=== PATIENT | male | born 1980 | race African-American/Black ===

== ENCOUNTER 2017-12-27 21:16 | Emergency (ER) | payer MEDICAID, SELFPAY ==
[2017-12-27 21:18] VITALS: BP 197/119; PULSE 136; RESP 20; TEMP 37.2; O2SAT 98; BMI 94.3
--- NOTE | 2017-12-27 21:43 | US_ITS ---
STUDY: VENOUS DOPPLER ULTRASOUND - BILATERAL LOWER EXTREMITIES REASON FOR EXAM: Male, 37 years old. Bilateral leg swelling after walking. TECHNIQUE: Ultrasound evaluation of the deep vein system to include kuhn-scale imaging and compression was performed. Kuhn-scale imaging and Doppler sonographic evaluation, including duplex spectral analysis and qualitative color flow sonography, was performed. COMPARISON: None. FINDINGS: RIGHT LEG Common Femoral Vein: Normal compression, spontaneity and augmentation. Normal color Doppler. Common Femoral Vein/Greater Saphenous Junction: Normal color flow. Deep Femoral Vein: Normal color flow. Femoral Proximal: Normal color flow. Femoral Middle: Normal compression, spontaneity and augmentation. Normal color Doppler. Femoral Distal: Normal color flow. Popliteal Vein: Normal compression, spontaneity and augmentation. Normal color Doppler. Posterior Tibial Vein: Normal color flow. Peroneal Vein: Normal color flow. LEFT LEG Common Femoral Vein: Normal compression, spontaneity and augmentation. Normal color Doppler. Common Femoral Vein/Greater Saphenous Junction: Normal color flow. Deep Femoral Vein: Normal color flow. Femoral Proximal: Normal color flow. Femoral Middle: Normal compression, spontaneity and augmentation. Normal color Doppler. Femoral Distal: Normal color flow. Popliteal Vein: Normal compression, spontaneity and augmentation. Normal color Doppler. Posterior Tibial Vein: Normal color flow. Peroneal Vein: Normal color flow. US/Venous Duplex Imag/Jerald Extrem IMPRESSION: Bilateral lower extremity venous Doppler exam negative for DVT Electronically Signed: Holly Hines MD at 22:52 EDT , Service support ,
[2017-12-27 21:57] VITALS: RESP 18; O2SAT 96
[2017-12-27 22:14] LABS: Anion Gap 5 (5-15); BUN 8 mg/dL (7-18); BUN/Creat Ratio 7.8 RATIO (10-20); Calcium,Total 8.3 mg/dL (8.5-10.1); Chloride 102 mmol/L (98-107); Creatinine, Serum 1.02 mg/dL (0.70-1.30); EST Glomerular Filtration Rate 88 mL/min (>60); Est Glom Filt Rate - Afr Amer 107 mL/min (>60); Estimated Creatinine Clearance 107.66 ml/min; Glucose 95 mg/dL (74-106); Potassium 2.9 mmol/L (3.5-5.1); Sodium Level 138 mmol/L (136-145)
[2017-12-27 22:22] LABS: CPK Total, Creatine Kinase 447 U/L (39-308)
[2017-12-27] MEDS: Cephalexin 250 MG Capsule 500 MG PO (23:34)
[2017-12-27] MEDS: oxyCODONE 5 MG Tablet 10 MG PO (23:34)
[2017-12-27 23:36] VITALS: BP 154/106; PULSE 118; RESP 18; O2SAT 96
--- NOTE | 2017-12-27 23:44 | ED.DCSUM_ITS ---
- ER Visit Summary Date of Service: 12/27/17 Chief Complaint: Bilateral lower extremity edema History of Present Illness: The patient is a 37 M presenting with bilateral lower extremity edema. Patient states this has been ongoing for the past 3 days. He states that he has been in several arguments with his girlfriend. He states that to get away from her he has been walking several miles each day for the last 3 days. He denies suicidal or homicidal ideation. He denies chest pain or shortness of breath. He has pain and swelling in both lower extremities. Denies other complaints. Physical Examination: Blood pressure 197/119, heart rate 136, pulse ox 96% on room air. patient is afebrile. Alert no acute distress. HEENT exam is unremarkable. Neck is supple. Lungs are clear and equal bilaterally. Heart is regular rate and rhythm. Abdomen is soft nontender nondistended. Extremities bilateral symmetric edema, normal distal pulses. Mild anterior erythema to both calves. Skin is warm and dry. No focal neurologic deficit. Remainder of exam is unremarkable. Emergency Department Course and Treatment: Bilateral lower extremity Doppler shows no evidence of DVT. Chemistries show potassium 2.9. He is given potassium oral replacement. His CK is 447. He is given 1 dose of OxyIR in the emergency department. He was given Keflex. On reevaluation, he now states that he has not been taking his blood pressure medication or Lasix for the past 3 days. He states he has his medications available to him at home and will take them as directed. Repeat blood pressure 154/106, heart rate 106. He is advised to follow up with his primary care physician. Advised return to ED for worsening complaints. Disposition: Discharge home Impression: Bilateral lower extremity edema, mild cellulitis This note was generated with [employer] dictation software. It may contain incorrect words, spelling, and punctuation that were not noted in review of the chart prior to signing ED Disposition - Plan for ED Patient: Disposition: Home or Assisted Living Chief Complaint: Edema Instructions: ED Leg Swelling Bilateral Prescriptions: Cephalexin [Keflex] 500 mg PO Q6 #40 capsule Referrals: Care Physician,No Primary [Primary Care Provider] -
[2017-12-28 00:15] VITALS: PULSE 110
== END 2017-12-28 00:16 | disposition home or self-care (01) ==
PROVIDERS: Emergency Provider Emergency Medicine
DX: R60.0 Localized edema (principal); L03.90 Cellulitis, unspecified; I10 Essential (primary) hypertension
CPT/HCPCS: 80048; 82550; 93970; 99284; A4216

== ENCOUNTER 2018-07-20 18:16 | Emergency (ER) | payer MEDICAID, SELFPAY ==
[2018-07-20 18:16] VITALS: BP 197/127; PULSE 106; RESP 18; TEMP 36.3; O2SAT 95; BMI 42.0
--- NOTE | 2018-07-20 19:06 | ED.DCSUM_ITS ---
- ER Visit Summary Date of Service: 07/20/18 Chief Complaint: Sore throat and right ear pain History of Present Illness: The patient is a 38 M who presents for 1 day of sore throat and right ear pain. Patient woke up with symptoms. He has had associated fever, mild cough, sinus congestion. He has pain with swallowing. No difficulty breathing or chest pain. He still has his tonsils. He has hypertension and obstructive sleep apnea. he lives at the [facility]. Physical Examination: Vital signs: afebrile, hypertensive and tachycardic, no hypoxia on room air General: well nourished, well developed, in no distress Skin: warm, dry, no rash, no pallor HEENT: normocephalic and atraumatic; PERRL, EOMI, moist mucous membranes on the posterior oropharynx is erythematous with diffuse tonsillar and uvular edema and exudate on the uvula. No other lesions noted. Neck is tender in the anterior cervical chains, greater on the right. Right TM is dull, erythematous, bulging. Cardiovascular: Tachycardic rate and rhythm without murmurs, no peripheral edema, 2+ pulses all distal extremities Respiratory: No increased work of breathing, lungs are clear to auscultation bilaterally, no rales, rhonchi or wheezing Abdominal: Abdomen is soft, nontender with normoactive bowel sounds, no guarding or rebound, no masses MSK: Moves all extremities, no deformities, normal strength Neuro: Awake and alert, oriented ?4. No facial droop, sensation and motor function intact and symmetric Test Results: [] Emergency Department Course and Treatment: Patient presents with a physical exam consistent with right acute otitis media and pharyngitis with mild exudate noted. Patient has poor follow-up and is homeless, thus because this may be a bacterial otitis media and pharyngitis, he was started on antibiotics. Patient was given a dose of Decadron to help with his sore throat. He was given naproxen for discomfort. He is allergic to Tylenol, this was not an option. Treatment Plan: [] Disposition: [] Impression: pharyngitis, right otitis media This note was generated with [employer] software. It may contain incorrect words, spelling, and punctuation that were not noted in review of the chart prior to signing ED Disposition - Plan for ED Patient: Disposition: Home or Assisted Living Chief Complaint: Sore Throat Instructions: ED Otitis Media Acute Adult, ED Strep Pharyngitis Poss Prescriptions: Amox/Clavulanate Tablet [Augmentin Tablet] 875 mg PO Q12H #20 tab RX: Naproxen [Naprosyn] 500 mg PO BID #14 tab Referrals: Tiffany Nance MD [STAFF PHYSICIAN] - 3-5 Days if not improving Care Physician,No Primary [Primary Care Provider] - Additional Instructions: Take the antibiotic twice daily for the full 10 days, even if you feel better before it is complete. You may use naproxen for fever and pain. If you have any worsening of your condition or any new concerning symptoms, please return immediately to the emergency department for another evaluation.
--- NOTE | 2018-07-20 19:06 | ED.DEP ---
ED Disposition - Plan for ED Patient: Disposition: Home or Assisted Living Chief Complaint: Sore Throat Instructions: ED Strep Pharyngitis Poss, ED Otitis Media Acute Adult Prescriptions: Amox/Clavulanate Tablet [Augmentin Tablet] 875 mg PO Q12H #20 tab Naproxen [Naprosyn] 500 mg PO BID #14 tab Referrals: Care Physician,No Primary [Primary Care Provider] - Tiffany Nance MD [STAFF PHYSICIAN] - 3-5 Days if not improving Additional Instructions: Take the antibiotic twice daily for the full 10 days, even if you feel better before it is complete. You may use naproxen for fever and pain. If you have any worsening of your condition or any new concerning symptoms, please return immediately to the emergency department for another evaluation.
[2018-07-20 19:49] VITALS: BP 178/102; PULSE 90; RESP 14; O2SAT 96
[2018-07-20] MEDS: Amox/Clavulanate 875 MG Tablet PO (19:49)
[2018-07-20] MEDS: Naproxen 500 MG Tablet PO (19:49)
== END 2018-07-20 19:50 | disposition home or self-care (01) ==
PROVIDERS: Emergency Provider Emergency Medicine
DX: J02.9 Acute pharyngitis, unspecified (principal); H66.91 Otitis media, unspecified, right ear; I10 Essential (primary) hypertension; G47.33 Obstructive sleep apnea (adult) (pediatric); E66.9 Obesity, unspecified; R05 Cough; M54.2 Cervicalgia
CPT/HCPCS: 99283

== ENCOUNTER 2019-01-03 14:02 | Emergency (ER) | payer SELFPAY ==
[2019-01-03 14:03] VITALS: BP 180/110; PULSE 93; RESP 20; TEMP 36.6; BMI 42.2
--- NOTE | 2019-01-03 14:28 | ED.VISSUMM ---
- ER Visit Summary Date of Service: 01/03/19 Chief Complaint: Bilateral foot pain History of Present Illness: The patient is a 38 M presents to the emergency department bilateral foot pain. The patient states he has been going on for about a week. He states his been on his feet more often with work. He states he was on for couple days and the pain got better. He states over the past 3 days, the pain is worsened. He states was worse when he wakes up. He states when he steps, he gets stabbing pain in both feet. Denies any fevers. He denies any trauma. Is not taken anything for it. Physical Examination: Exam is relatively unremarkable. Patient does have tenderness to palpation bilateral plantar fascia. Pulses are normal. Skin is intact. Test Results: [] Emergency Department Course and Treatment: Symptoms do seem consistent with plantar fasciitis. He has normal pulses. Compartments are soft. He said no trauma. We will treat him with anti-inflammatories. He is given 1 dose of analgesics here. He will be discharged home. Treatment Plan: [] Disposition: Discharge Impression: Plantar fasciitis This note was generated with [employer] dictation software. It may contain incorrect words, spelling, and punctuation that were not noted in review of the chart prior to signing ED Disposition - Plan for ED Patient: Instructions: ED Plantar Fasciitis Prescriptions: Prednisone [Deltasone] 40 mg PO DAILY #10 tab Naproxen [Naprosyn] 500 mg PO BID #14 tab Referrals: Care Physician,No Primary [Primary Care Provider] -
[2019-01-03] MEDS: predniSONE 20 MG Tablet 40 MG PO (14:37)
--- NOTE | 2019-01-03 15:07 | ED.RN ---
PT UNABLE TO STAY AWAKE WHILE THIS RN AND REGISTRATION IN ROOM. HAD TO BE AWAKENED X3 WITHIN 4 MIN TIME FRAME. MD NOTIFIED, ORDER FOR OXYIR CANCELED. PT ANGRY AT DISCHARGE, STATES HE DESERVES STRONG PAIN MEDICATION, STATES HE IS UNABLE TO WORK DUE TO PAIN. REQUESTS TO SPEAK TO MD. MD ASKS THIS RN TO RELAY MESSAGE THAT NSAIDS AND STEROIDS ARE APPROPRIATE TREATMENT FOR PLANTAR FASCITIS, NO NARCOTICS WILL BE PRESCRIBED. 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 ATTEMPTED TO EDUCATE ON PLANTAR FASCITIS, PT LEFT DEPT WHILE RN SPEAKING.
== END 2019-01-03 15:12 | disposition home or self-care (01) ==
PROVIDERS: Emergency Provider Emergency Medicine
DX: M72.2 Plantar fascial fibromatosis (principal); I10 Essential (primary) hypertension; Z72.0 Tobacco use
CPT/HCPCS: 99283

== ENCOUNTER 2019-01-07 02:30 | Emergency (ER) | payer SELFPAY ==
[2019-01-07 02:30] VITALS: BP 218/134; PULSE 96; RESP 18; TEMP 36.7; O2SAT 99; BMI 41.4
[2019-01-07] MEDS: Ketorolac 60 MG/2 ML Vial IM (02:47)
--- NOTE | 2019-01-07 02:48 | ED.DCSUM_ITS ---
History of Present Illness Chief Complaint: Lower Extremity Injury Informant: Patient Narrative: Patient stated he started a new job and has been on his feet a lot and work boots for the last 2 weeks. He is having worsening pain in the bottom of his bilateral feet. He describes sharp pains with walking after he is been standing all day. 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 He was seen a few days ago diagnosed with bilateral plantar fasciitis. Given anti-inflammatories which she stated does help minimally. Comes in for further evaluation she had a leave work tonight because of the pain. No injury. Past Medical History - Allergies and Home Meds Allergies/Adverse Reactions: Allergies hydrocodone [From Vicodin] Adverse Reaction (Verified 01/07/19 02:32) Itching POLLEN Allergy (Uncoded 01/07/19 02:32) Shortness of breath Primary Care Physician: Care Physician,No Primary [Primary Care Provider] - Prior records reviewed: Yes Past Medical History: - - Hypertension Surgical History: - - Reviewed Smoking Status: Former smoker Alcohol: None Drugs: None Review of Systems General: Denies: Chills, Fever, Sweats Eyes: Denies: Visual changes - bilaterally, Diplopia ENT: Denies: Rhinorrhea, Sore throat Cardiovascular: Denies: Chest pain, Palpitations Respiratory: Denies: Dyspnea, Cough, Dyspnea on exertion Gastrointestinal: Denies: Abdominal pain, Nausea, Vomiting, Diarrhea, Melena, Hematochezia Genitourinary: Denies: Dysuria, Hematuria, Frequency Musculoskeletal: Reports: - - Bilateral foot pain. Denies: Back pain, Extremity Pain Skin: Denies: Rash, Wounds Neurological: Denies: Headache, Weakness, Numbness Physical Exam Vital Signs/Narrative: Vital Signs Temp Pulse Resp BP Pulse Ox 01/07/19 02:30 98.1 F 96 18 218/134 H 99 General: Well nourished, Well developed, No Acute Distress Head: Normocephalic, Atraumatic Eyes: Perrl, EOMI ENT: Moist mucous membranes, No rhinorrhea Neck: Supple, Nontender Cardiovascular: Regular rate, Regular rhythm, No murmurs Respiratory: No distress, CTA bilaterally, Chest nontender Abdomen: Soft, Nontender, Nondistended, Normal bowel sounds Back: Nontender, Normal Inspection Extremities: No edema, - - Tenderness in the plantar fascia on bilateral lower extremities. Normal pulses. Normal temperature. Normal movement.. Negative for: Nontender Skin: Normal color, No rash Neurological: Alert, Oriented x3, Cranial nerves II-XII grossly intact, Normal Strength, Normal Sensation Psychological: Normal affect, Normal Mood Diagnostic/Tx/Re-eval - Medical Decision Making Patient diagnosed with plantar fasciitis a few days ago. I feel this is just a persistent finding. I do not feel he needs imaging. There is no evidence of trauma or infection. He is been wearing his heavy duty work boots. I think this is contributing to his pain in his feet. Instructed to try to get an insole. Given referral to podiatry. Given a shot of Toradol. Will rest and ice as best he can. ED Disposition - Plan for ED Patient: Disposition: Custodial Facility Diagnosis: Plantar fasciitis, bilateral Instructions: ED Plantar Fasciitis Referrals: Nayan Romero DPM [STAFF PHYSICIAN] -
[2019-01-07 03:01] VITALS: RESP 14
== END 2019-01-07 03:02 | disposition skilled nursing facility (03) ==
PROVIDERS: Emergency Provider Emergency Medicine
DX: M72.2 Plantar fascial fibromatosis (principal); I10 Essential (primary) hypertension; Z87.891 Personal history of nicotine dependence; J30.1 Allergic rhinitis due to pollen
CPT/HCPCS: 99282

== ENCOUNTER 2020-02-05 17:07 | Emergency (ER) | payer MEDICAID, SELFPAY ==
[2020-02-05 17:08] VITALS: BP 152/107; PULSE 94; RESP 15; TEMP 36.6; O2SAT 97; BMI 40.9
--- NOTE | 2020-02-05 17:41 | ED.VIS.DENTA ---
History of Present Illness Chief Complaint: Dental Informant: Patient Onset: Yesterday Context: Gradual Onset Timing: Continuous Quality: sore Location: left side of mouth/teeth/gums Current Severity: Moderate Maximum Severity: Moderate Worsened by: eating Relieved by: - - having cold water against it. Naproxen did not help at all. Associated Symptoms: - - No fever, jaw or facial swelling, discharge, neck pain. Narrative: Gradual onset oral pain of unknown etiology. - Past Medical History (1) HTN (hypertension) Status: Chronic Past Medical History - Allergies and Home Meds Allergies/Adverse Reactions: Allergies hydrocodone [From Vicodin] Adverse Reaction (Verified 02/05/20 17:08) Itching POLLEN Allergy (Uncoded 02/05/20 17:08) Shortness of breath Primary Care Physician: Care Physician,No Primary [Primary Care Provider] - Surgical History: - - Reviewed Smoking Status: Former smoker Review of Systems General: Denies: Chills, Fever, Sweats ENT: Reports: - - gingival/dental pain. Denies: Bilateral ear pain, Rhinorrhea, Sore throat Cardiovascular: Denies: Chest pain, Palpitations Respiratory: Denies: Dyspnea, Cough, Dyspnea on exertion Gastrointestinal: Denies: Abdominal pain, Nausea, Vomiting, Diarrhea, Melena, Hematochezia Physical Exam Vital Signs/Narrative: Vital Signs Temp Pulse Resp BP Pulse Ox 02/05/20 17:08 97.9 F 94 15 152/107 H 97 Inital Vital Signs reviewed: Yes General: Well nourished, Well developed, - - NAD Head: Normocephalic, Atraumatic ENT: Moist mucous membranes, No rhinorrhea Mouth/Throat: Normal oral mucosa, No focal abscess, Gingivitis - mild, inside teeth #14-15 on edge of gingiva next to teeth only, and very mild on outside of mandibular left gingiva near edentulous area, teeth#18-20. no abscess or drainage., - - No gingival bleeding anywhere.. Negative for: Dental trauma, Dental abscess, Dentral fracture, Focal gum swelling, Tenderness on tooth percussion, Trismus Neck: Supple, No lymphadenopathy, Nontender Skin: Normal color, No rash, No Trauma Neurological: Alert, Oriented x3, Cranial nerves II-XII grossly intact, Normal Strength, Normal Sensation, Normal Gait Psychological: Normal affect, Normal Mood Diagnostic/Tx/Re-eval - Medical Decision Making Possibly gingivitis. It is the only abnormality that I can see on inspection. The teeth that are to their look good. We will place him on Ultram and clindamycin, discussed eating yogurt along with it to prevent antibiotic associated diarrhea and C. difficile, and given dental resource list. He was given a dose of Orellana 2 inhibitor here because it is good for oral pain, in addition to tramadol. ED Disposition - Plan for ED Patient: Disposition: Home or Assisted Living Diagnosis: Gingivitis Instructions: Understanding Gingivitis Prescriptions: Clindamycin [Cleocin] 300 mg PO 4X/DAY #80 cap Transmission Status: Pending to Private Practice #30 traMADol [Ultram] 50 mg PO Q4H PRN PRN 2 Days #12 tablet PRN Reason: Pain Transmission Status: Sent to Private Practice #30 Referrals: Dentist,Your [STAFF PHYSICIAN] - 3-5 Days if not improving (or see attached resource list)
[2020-02-05] MEDS: Meloxicam 7.5 MG Tablet PO (18:00)
[2020-02-05] MEDS: traMADol 50 MG Tablet PO (18:00)
[2020-02-05] MEDS: Clindamycin HCl 150 MG Capsule 300 MG PO (18:33)
--- OUTSIDE RECORDS SUMMARY | 2020-06-13 12:06 | XMS RPT_ITS | CCD ---
:1980 External Reference #:[id number] Author Organization [facility] Care Team Providers Name Role Phone Kasi Kong Unavailable Unavailable Wayt, Marcell Unavailable Unavailable Wayt, Marcell Unavailable Unavailable PROVIDER, UNKNOWN Unavailable Unavailable Wayt, Marcell Unavailable Unavailable Wayt, Marcell Unavailable Unavailable Wayt, Marcell Unavailable Unavailable Wayt, Marcell Unavailable Unavailable Viviane, Scottie Unavailable Unavailable Miki Recinos (Prasanna) Primary Care Provider Allergies Reported Allergen Reaction(s) Severity Date of Onset Location Acetaminophen / HYDROcodone Unknown 01-16-2017 - [facility] ([id number]) Pollen Itching 12-30-2018 - [facility] (59123) Medications Medication Name Sig Date Prescriber Location Albuterol albuterol HFA 05-04-2019 Amairani Shirley (Reese-C) [facility] linic (VENTOLIN HFA) [address] Amairani Shirley ([id number]) mcg/actuation inhaler (Pa-C) Sonny Indications: Moderate persistent asthma without complication Inhale 2 Puffs as instructed every 4 hours as needed for Wheezing/Shortness of Breath. 18 g 2 05/04/2019 Active Comment: Inhale 2 Puffs as instructed every 4 hours as needed for Wheezing/Shortness of Breath. amLODIPine amLODIPine (NORVASC) 5 12-30-2018 Miki Ponce (Prasanna) [facility] mg tablet Indications: Jorje Ponce ( 52947) Essential hypertension (Pa-C) Jorje Take 1 tablet by mouth once daily. 30 tablet 2 12/30/2018 Active Comment: Take 1 tablet by mouth once daily. benzonatate benzonatate (TESSALON 06-17-2018 Lisa ([facility]) [facility] PERLE) 100 mg capsule King Lisa ([id number]) Indications: ([facility]) Eboni Sinobronchitis Take 2 capsules by mouth three times daily as needed. 30 capsule 0 06/17/2018 Active Comment: Take 2 capsules by mouth thr ee times daily as needed. Betamethasone / clotrimazole-betamethasone 12-30-2018 Miki Roberto Clotrimazole (LOTRISONE) cream Indications: (Pa-C) Clinic Tinea pedis of left foot Apply Jorje Livingston (12070) 1 application to affected area Kris twice daily. UNTIL CLEAR FOR UP (Pa-C) TO 2-3 WEEKS 15 g 1 12/30/2018 Jorje Active Comment: Apply 1 application to affec lamar area twice daily. UNTIL CLEAR FOR UP TO 2-3 WEEKS Doxycycline doxycycline monohydrate 06-17-2018 Lisa ([facility]) [facility] 100 mg tablet King TraciLisa (08781) Indications: ([facility]) Eboni Sinobronchitis Take 1 tablet by mouth twice daily. 20 tablet 0 06/17/2018 Active Comment: Take 1 tablet by mouth twice daily. formoterol / mometasone-formoterol 12-30-2018 Miki Back and Mometasone (DULERA) 200-5 mcg/actuation (Pa-C) [facility] (24588) inhaler Indications: Miki Ponce Moderate persistent asthma (Pa-C) Jorje without complication Inhale 2 Puffs as instructed twice daily. Rinse mouth and spit after each use. 1 Inhaler 1 12/30/2018 Active Comment: Inhale 2 Puffs as instructed twice daily. Rinse mouth and spit after each use. Ibuprofen ibuprofen (MOTRIN) 800 12-30-2018 Miki Ponce (Reese-C) [facility] mg tablet Take 1 tablet Jorje Ponce (11892) by mouth every 8 hours (Pa-C) Jorje as needed (FOR PAIN. TAKE WITH FOOD). 30 tablet 2 12/30/2018 Active Comment: Take 1 tablet by mouth every 8 hours as needed (FOR PAIN. TAKE WITH FOOD). Lisinopril lisinopril (ZESTRIL, 12-30-2018 Miki Ponce (Pa-C) [facility] PRINIVIL) 20 mg tablet Jorje Ponce ( 30583) Indications: Essential (Pa-C) Recinos hypertension Take 1 tablet by mouth once daily. 30 tablet 2 12/30/2018 Active Comment: Take 1 tablet by mouth once daily. Loratadine loratadine (CLARITIN) 10 06-28-2018 Naty (Oncology Social Work) [facility] mg tablet Indications: Podlogar Naty (44 195) Moderate persistent (Oncology Social Work) Podlogar asthma without complication TAKE 1 TABLET BY MOUTH EVERY DAY 30 tablet 2 06/28/2018 Active Comment: TAKE 1 TABLET BY MOUTH EVERY DAY Problems Active Problems Category Problem Name Status Date Location Alcohol-related Alcohol dependence Active 05-16-2015 - [facility] disorders (94716) Anxiety disorders Generalized anxiety Active 05-16-2015 - [facility] disorder (21896) Asthma Unspecified asthma, Active 05-16-2015 - [facility] uncomplicated (61778) Essential hypertension Essential (primary) Active 05-16-2015 [facility] hypertension (00113) Other connective tissue Pain of toe of left Active 05-16-2015 - [facility] disease foot (24880) Other nutritional; Morbid obesity Active 11-28-2017 - [facility] endocrine; and (19146) metabolic disorders Other upper respiratory Allergic rhinitis Active 05-16-2015 - [facility] disease (82609) Substance-related Nicotine dependence, Active 05-27-2017 [facility] disorders cigarettes, (41576) uncomplicated Unclassified Sleep apnea, Active 05-27-2017 - [facility] stem unspecified (09699) Past or Other Problems Category Problem Name Status Date Location Allergic reactions Allergy status to Completed 05-20-2017 [facility] narcotic agent System (26262 ) status Chronic obstructive Bronchitis, not Completed 05-27-2017 [facility] pulmonary disease and specified as acute System (46291) bronchiectasis or chronic Other lower respiratory Cough Completed 05-20-2017 [facility] disease System (71003) Other screening for Liver function tests Completed 05-16-2015 - [facility] suspected conditions abnormal (15521) (not mental disorders or infectious disease) Other upper respiratory Nasal congestion Completed 05-20-2017 [facility] Health disease System (20863) Other upper respiratory Acute pharyngitis, Completed 05-20-2017 [facility] Health infections unspecified System (66948) Otitis media and related Acute serous otitis Completed 7 - [facility] conditions media, bilateral System (000 00) Superficial injury; Contusion of left Completed 03-11-2017 [facility] contusion front wall of System (61701) thorax, initial encounter Viral infection Other viral agents Completed 03-11-2017 - [facility] as the cause of System (0000 0) diseases classified elsewhere Results Result Name Value Range Unit Interpretation Flag Date Location obsolete on 2020-02 OBSOLETE Refill ([facility]) Normal 03-06-2020 [facility] KELECHI VALENCIA ([id number]) 1980 [facility] Date Time Provider Department (69720) 03/06/20 KARI LANDAVERDE (REESE) [facility] During your visit today, we recorded the following informati on about you: Kiki Russell LPN 04/21/2020 3:54 PM Signed Patient's request for medication is as follows: Refused Prescriptions Disp Refills loratadine (CLARITIN) 10 mg tablet [Pharmacy Med Name: lorat adine 10 mg tablet] 7 tablet 0 Sig: Take 1 tablet by mouth once daily for 7 days. SHAYY: No Refused By: KIKI RUSSELL LPN Reason for Refusal: Patient needs appointment Prescription(s) as above. Please process accordingly. Kiki Russell LPN Allergies As of Date: 03/06/2020 Noted Allergy Reaction HYDROCODONE-ACETAMINOPHEN 01/16/2017 16 - Unknown POLLEN EXTRACTS 12/30/2018 9 - Itching Date Reviewed: 05/04/2019 Reviewed by: Dax (Rn) SHABBIR Persaud - Fully Assessed Reason for Visit: Refill Request [94] Visit Diagnosis:Moderate persistent asthma without complicat ion [J45.40] Prescriptions as of 03/06/2020 Sig: ALBUTEROL SULFATE HFA 90 MCG/* Inhale 2 Puffs as instructed * IBUPROFEN 800 MG TABLET Take 1 tablet by mouth every * MOMETASONE-FORMOTEROL HFA 200* Inhale 2 Puffs as instructed * LISINOPRIL 20 MG TABLET Take 1 tablet by mouth once d* AMLODIPINE 5 MG TABLET Take 1 tablet by mouth once d* CLOTRIMAZOLE-BETAMETHASONE 1 * Apply 1 application to affect * LORATADINE 10 MG TABLET TAKE 1 TABLET BY MOUTH EVERY * DOXYCYCLINE MONOHYDRATE 100 M* Take 1 tablet by mouth twice * Patient not taking: Reported on 12/29/2018 BENZONATATE 100 MG CAPSULE Take 2 capsules by mouth thre* Patient not taking: Reported on 12/29/2018 Problem List As Of Date 03/06/2020 Noted Resolved Allergic rhinitis due to allergen [J30.9] 05/16/2015 Elevated LFTs [R79.89] 05/16/2015 Essential hypertension [I10] 05/16/2015 Other and unspecified alcohol dependence, unspe*05/16/2015 More... Anxiety, generalized [F41.1] 05/16/2015 Pain in toe of left foot [M79.675] 05/16/2015 More... Asthma [J45.909] 05/16/2015 Obesity, Class III, BMI 40-49.9 (morbid obesity*11/28/2017 Elevated glucose [R73.09] 12/24/2017 Encounter Status:Closed by KIKI RUSSELL LPN on 04/21/20 xr chest 2v frontal/lat on 2019-05-04 XR CHEST 2V * * *Final Report* * * Normal 05-04 [facility] FRONTAL/LAT DATE OF EXAM: May 04 2019 [facility] CHEST 2V FRONTAL/LAT / (56045) PROCEDURE REASON: Cough, new onset * * * * Physician Interpretation * * * * EXAMINATION: CHEST RADIOGRAPH (2 VIEW FRONTAL & LATERAL) CLINICAL HISTORY: Cough, new onset MQ: XC2_5 Comparison: None RESULT: Lines, tubes, and devices: None. Lungs and pleura: No consolidation. No lung mass. No pleural effusion. Cardiomediastinal silhouette: Normal cardiomediastinal silho uette. Other: No bony abnormalities. IMPRESSION: No acute radiographic abnormality. General Farm Hand: RONDA Transcribe Date/Time: May 04 2019 3:32P Dictated by : DARRICK VIVEROS MD This examination was interpreted and the report reviewed and electronically signed by: DARRICK VIVEROS MD on May 04 2019 3:33PM EST ed triage note on ED Triage Note HNO ID: [id number] Normal 2018 [facility] Author: REESE Greenwood (Pa) [facility] Service: Emergency Medicine ([id number]) Author Type: Physician Stull Installer Type: ED Triage Notes Filed: 05/04/2019 2:43 PM Note Text: ED INTAKE NOTE Patient Name: Kelechi Valencia Service Date: 05/04/19 BRIEF HPI: Patient presents to the emergency department with a chief co mplaint of congestion and cough. He states symptoms started a few days ago. He denies fevers/chills. He has a history of asthma and endorse s wheezing and chest tightness. He states cough is productive with gree n sputum. He is not a smoker. BRIEF EXAM: Awake and Alert Mildly tachycardic B/l wheezing KEARNS BP 155/112 INTAKE WORKUP: Imaging: XR: chest SIGNATURE: Kimi Morse PA-C ed prov note on 05-05-08 ED PROV NOTE HNO ID: [id number] Normal 05-04-20 [facility] Author: Amairani Loyd) REESE [facility] Service: Emergency Medicine ([id number]) Author Type: Physician Stull Installer Type: ED Provider Notes Filed: 05/04/2019 3:49 PM Note Text: ED Provider Note Patient Name: Kelechi Valencia SERVICE DATE: 05/04/19 History Patient presents with: Nasal Congestion: Pt ambulatory to triage, c/o congestion AN D productive cough w/ green sputum x a few days. Pt denies fever. Cough 38-year-old male with past medical history significant for u ncontrolled hypertension, medication noncompliance, asthma [facility] with complaints of cough and congestion as well as wheezing and c hest tightness for the last 3-4 days. He has a history of asthma, reports t hat he ran out of his albuterol inhaler yesterday. He has not taken any of her jwrb-lmc-hwfytrw medications for cough or congestion. He rep orts dyspnea on exertion. He is a nonsmoker. He reports that he is out of his blood pressure medications for more than 2 months and has an appoi ntment with a new PCP 3 days from now. Recently finished penicillin for a dental infection. PAST MEDICAL HISTORY Diagnosis Date - Allergic rhinitis due to allergen 05/16/2015 - Anxiety, generalized 05/16/2015 - Asthma 05/16/2015 - Elevated LFTs 05/16/2015 - Essential hypertension, benign - Other and unspecified alcohol dependence, unspecified drin eboni behavior 05/16/2015 working on cutting back No past surgical history on file. No family history on file. Social History Tobacco Use - Smoking status: Former Smoker Packs/day: 0.50 Types: Cigarettes Start date: 04/26/1997 Last attempt to quit: 11/27/2018 Years since quittin.4 - Smokeless tobacco: Never Used Substance and Sexual Activity - Alcohol use: Yes Comment: 5 beers per week - Drug use: Yes Comment: occasional - Sexual activity: Not on file ALLERGIES Allergen Reactions - Hydrocodone-Acetami* Unknown - Pollen Extracts Itching Review of Systems All other systems reviewed and are negative. Physical Exam BP 160/90 Pulse 98 Temp (Src) 98.1 (Oral) Resp 20 Ht 5' 11 (1.80m) Wt 295 lb (133.8kg) SpO2 98% BMI 41.16 kg/(m2) . O2 Therapy: Room Air Physical Exam Constitutional: He is oriented to person, place, and time. H e appears well-developed and well-nourished. HENT: Head: Normocephalic and atraumatic. Right Ear: Tympanic membrane, external ear and ear canal nor mal. Left Ear: Tympanic membrane, external ear and ear canal norm al. Nose: Nose normal. Mouth/Throat: Uvula is midline, oropharynx is clear and mois t and mucous membranes are normal. No tonsillar exudate. Sounds very congested, clear nasal discharge. No tenderness with palpation of the frontal or maxillary sinuses. Eyes: Conjunctivae are normal. Neck: Normal range of motion. Neck supple. Cardiovascular: Normal rate, regular rhythm and normal heart sounds. Pulmonary/Chest: Effort normal. No stridor. No respiratory d istress. Expiratory wheezing in the bases, diminished throughout. Musculoskeletal: Normal range of motion. Neurological: He is alert and oriented to person, place, and time. Skin: Skin is warm and dry. Psychiatric: He has a normal mood and affect. His behavior i s normal. Judgment and thought content normal. Diagnostic Testing ED Labs Ordered and Reviewed - No data to display Procedures ED Course / Clinical Impression Clinical Impressions as of May 04 1548 Exacerbation of asthma, unspecified asthma severity, unspeci fied whether persistent Nasal congestion Uncontrolled hypertension Noncompliance with medications MDM / Disposition / Plan 38-year-old male presents to the ED with cough, congestion, shortness of breath and wheezing ongoing for the last 3-4 days. Patient i s an asthmatic, is very poorly controlled sounds like is he's run out of his inhaler, does not follow closely with her PCP as noted by hi s elevated blood pressure on arrival, somewhat better after recheck 160 /90. Patient had chest x-ray which revealed no acute abnormalities. He di d have a DuoNeb with some improvement in his wheezing and oxygen satu ration remains good at 90% on room air. Patient given prednisone. Will be d ischarged home with prescription for prednisone for an asthma exacerba tion, instructed to get Sudafed uvzt-dvg-oswrobm for nasal congest ion, refill the patient's albuterol inhaler. He has a follow-up with a n radha PCP he reports on Sunday, highly encouraged him to go to this. C an return with new, worsening or concerning symptoms. Patient verbaliz ed understanding of the plan and all questions were answered pr ior to discharge. SIGNATURE: PRASANNA Tyson Pa-C, PA 05/04/19 1549 ed note on ED NOTE HNO ID: [id number] Normal 05-04-2019 [facility] Author: Carmencita [facility] ([id number]) Service: Emergency Medicine Author Type: Registered Nurse Type: ED Notes Filed: 05/04/2019 3:46 PM Note Text: Waiting for reg in order to print discharge instructions. ED NOTE HNO ID: [id number] Normal 05-04-2019 [facility] Author: [facility] ([id number]) Service: Emergency Medicine Author Type: Registered Nurse Type: ED Notes Filed: 05/04/2019 3:45 PM Note Text: Patient returned to the Emergency Department. ED NOTE HNO ID: [id number] Normal 05-04-2019 [facility] Author: Carmencita (Rn) SHABBIR [facility] ([id number]) Service: Emergency Medicine Author Type: Registered Nurse Type: ED Notes Filed: 05/04/2019 3:26 PM Note Text: Patient transported to [facility] with Tech. ED NOTE HNO ID: [id number] Normal 05-04-2019 [facility] Author: Dax RamRnShari Persaud RN [facility] ([id number]) Service: Emergency Medicine Author Type: Registered Nurse Type: ED Notes Filed: 05/04/2019 2:44 PM Note Text: XR notified pt is ready for exam cr chest pa/lat on 2017-05-20 CR Chest PA/LAT Patient Name: KELECHI VALENCIA 05-20-2017 [facility] FIN: ( [id number]) [id number] Diagnostic Radiology Exam Date/Time 05/20/2017 14:49:10 EDT Exam CR Chest PA/LAT Ordering Physician PRASANNA LEONG ROBERT Accession Number [id number] CPT4 Codes 15572 () Reason For Exam cough Report PA and lateral views of the chest, May 20, 2017. Reason for examination: Cough. COMPARISON: March 11, 2017. FINDINGS: Cardiac size and configuration are normal. Pulmonary vasculature is normal. Lungs are clear. No pleural effusion or pneumothorax is identified. Osseous structures appear grossly intact. IMPRESSION: No acute cardiopulmonary disease. Report Dictated on Final Dictated: 05/20/2017 2:51 pm Dictating Physician: MD HEATON JOE M Signed Date and Time: 05/20/2017 2:53 pm Signed by: MD HEATON JOE M Transcribed Date and Time: 05/20/2017 2:51 cr chest pa/lat on 2017-03-11 CR Chest PA/LAT Patient Name: KELECHI VALENCIA 03-11-2017 [facility] FIN: ( [id number]) [id number] Diagnostic Radiology Exam Date/Time 03/11/2017 15:25:13 EDT Exam CR Chest PA/LAT Ordering Physician MD KONG SHELDON H Accession Number [id number] CPT4 Codes 09741 () Reason For Exam cough and rib pain Report CHEST X-RAY PA/LATERAL CLINICAL INDICATION: Cough and rib pain Frontal and lateral plain films of the chest were obtained. COMPARISON: 01/22/2017 FINDINGS: The cardiac silhouette is within normal limits. No focal consolidation is seen within the lungs. No pleural effusion or pneumothorax is identified. The bony structures of the chest are unremarkable as visualized. IMPRESSION: No acute cardiopulmonary disease. Report Dictated on Final Dictated: 03/11/2017 3:29 pm Dictating Physician: LISA WOODRUFF Signed Date and Time: 03/11/2017 3:29 pm Signed by: LISA WOODRUFF Transcribed Date and Time: 03/11/2017 3:29 Encounters Date Type Reason Provider Location 05-27-2017 Ambulatory Essential (primary) [facility] alth hypertension [facility] (48722) Scottie Pan 05-20-2017 Ambulatory Cough UNKNOWN PROVIDER [facility] (38623) [facility] 03-11-2017 Ambulatory Other viral agents as Kasi Bibi [facility] the cause of diseases [facility] (61386) classified elsewhere Marcell [employer] 03-06-2020 - Refill Uncomplicated moderate Kari R (Pa) [facility] 03-06-2020 persistent asthma Care Comment: Refill Request Plan of Treatment Plan Description Date Location LIPID SCREEN LIPID SCREEN 12-21-2022 [facility] (13041) INFLUENZA (#1) INFLUENZA (#1) 2020 [facility] (06784) ANNUAL PCP TEAM CHRONIC ANNUAL PCP TEAM CHRONIC 12-31-2019 [facility] DISEASE VISIT DISEASE VISIT (93679) ONE PNEUMOVAX PRIOR TO ONE PNEUMOVAX PRIOR TO AGE 1107-03-2001 [facility] AGE 67 65 (57281) DTAP,TDAP,TD (1 - Tdap) DTAP,TDAP,TD (1 - Tdap) 2001 [facility] (39901) BP CONTROLLED (<130/80) BP CONTROLLED (<130/80) 2000 [facility] (00702) HEPATITIS C SCREENING HEPATITIS C SCREENING 2000 [facility] (05977) HIV SCREENING HIV SCREENING 2000 [facility] (63928) SPIROMETRY SPIROMETRY 2000 [facility] (69864) Payers Payer Name Policy Number Location [facility] ([id number]) [place] [id number] [facility] (44 195) The following information is from the original human readable contentNo Payer Records FoundNo Payer Records FoundNo Payer Records FoundNo Payer Records FoundNo Payer Records Found Social History Type Social History Date Location Description Tobacco smoking status Former smoker 05-04-2019 [facility] (79888) History of tobacco use Current smoker 04-26-1997 - [facility] 11-27-2018 (97919) History of tobacco use Cigarette Smoker 04-26-1997 - [facility] 11-27-2018 (13236) Cigarettes smoked 05-04-2019 [facility] ic current (pack per day) (69655) - Reported Tobacco use and Never used 05-04-2019 [facility] exposure (03509) Alcohol intake Current drinker of 05-04-2019 [facility] mami alcohol (finding) (30690) Alcohol Comment 5 beers per week 04-26-2015 [facility] c (23547) Sex Assigned At Not on file [facility] (58871) The following information is from the original human readable contentNo Social History Records FoundNo Social History Records FoundNo Social History Records FoundNo Social History Records FoundNo Social History Records FoundNo Social History Records FoundNo Social History Records Found Summary Purpose Family History No Family History Records FoundNo Family History Records FoundNo Family History Records FoundNo Family History Records Found Advance Directives No Advanced Directives Records Found Documents on File Type Date Recorded Patient [place] Explanati on Advance Directive(s) 05/04/2019 3:43 PM Assessments Diagnosis Moderate persistent asthma without compl ication Unspecified asthma Additional Source Comments FOR RECORDS PERTAINING TO PATIENTS WHO ARE OR HAVE BEEN ENROLLED IN A CHEMICAL DEPENDENCY/SUBSTANCE ABUSE PROGRAM, SOME INFORMATION MAY BE OMITTED. This clinical summary was aggregated from multiple sources. Caution should be exercised in using it in the provision of clinical care. This summary normalizes information from multiple sources, and as a consequence, information in this document may materially changethe coding, format and clinical context of patient data. In addition, data may be omittedin some cases. CLINICAL DECISIONS SHOULD BE BASED ON THE PRIMARY CLINICAL RECORDS. [facility] provides no warranty or guarantee of the accuracy or completeness of information in this document. UNRECOGNIZED CONTENT PROVIDED BELOW FOR UNRECOGNIZED SECTION No Status Records FoundNo Status Records FoundNo Status Records FoundNo Status Records Found UNRECOGNIZED CONTENT PROVIDED BELOW FOR UNRECOGNIZED SECTION INFORMATION SOURCE DATE CREATED AUTHOR AUTHOR'S ORGANIZATIO N 02/20/2018 [facility] DATE CREATED AUTHOR AUTHOR'S ORGANIZATIO N 05/04/2019 [facility] DATE CREATED AUTHOR AUTHOR'S ORGANIZATIO N 05/04/2019 [facility] DATE CREATED AUTHOR AUTHOR'S ORGANIZATIO N 04/22/2020 [facility] UNRECOGNIZED CONTENT PROVIDED BELOW FOR UNRECOGNIZED SECTION Source Comments In the event this information is protected by the Federal Confidentiality of Alcohol and Drug Abuse Patient Records regulations: The Federal rules restrict any use of the information to criminally investigate or prosecute any alcohol or drug abuse patient.[facility] UNRECOGNIZED CONTENT PROVIDED BELOW FOR UNRECOGNIZED SECTION Reason for Visit Reason Comments Refill Request UNRECOGNIZED CONTENT PROVIDED BELOW FOR UNRECOGNIZED SECTION Miscellaneous Notes Telephone Encounter - Kiki Russell LPN - 04/21/2020 3:54 PM EDT Patient's request for medication is as follows: Refused Prescriptions Disp Refills loratadine (CLARITIN) 10 mg tablet [Pharmacy Med Name: loratadine 10 mg tablet] 7 tablet 0 Sig: Take 1 tablet by mouth once daily for 7 days. SHAYY: No Refused By: KIKI RUSSELL LPN Reason for Refusal: Patient needs appointment Prescription(s) as above. Please process accordingly. Kiki Russell LPN documented in this encounter
--- OUTSIDE RECORDS SUMMARY | 2020-06-13 12:07 | XMS RPT_ITS | CCD ---
:1980 External Reference #:[id number] Author Organization [facility] Care Team Providers Name Role Phone Kasi Kong Unavailable Unavailable Wayt, Marcell Unavailable Unavailable Wayt, Marcell Unavailable Unavailable PROVIDER, UNKNOWN Unavailable Unavailable Wayt, Marcell Unavailable Unavailable Wayt, Marcell Unavailable Unavailable Wayt, Marcell Unavailable Unavailable Wayt, Marcell Unavailable Unavailable Viviane, Scottie Unavailable Unavailable Miki Recinos (Prasanna) Primary Care Provider Allergies Reported Allergen Reaction(s) Severity Date of Onset Location Acetaminophen / HYDROcodone Unknown 01-16-2017 - [facility] ([id number]) Pollen Itching 12-30-2018 - [facility] (62010) Medications Medication Name Sig Date Prescriber Location Albuterol albuterol HFA 05-04-2019 Amairani Shirley (Reese-C) [facility] linic (VENTOLIN HFA) 90 [address] Amairani Shirley ([id number]) mcg/actuation inhaler (Pa-C) Sonny Indications: Moderate persistent asthma without complication Inhale 2 Puffs as instructed every 4 hours as needed for Wheezing/Shortness of Breath. 18 g 2 05/04/2019 Active Comment: Inhale 2 Puffs as instructed every 4 hours as needed for Wheezing/Shortness of Breath. amLODIPine amLODIPine (NORVASC) 5 12-30-2018 Miki Ponce (Prasanna) [facility] mg tablet Indications: Jorje Ponce ( 39799) Essential hypertension (Pa-C) Jorje Take 1 tablet by mouth once daily. 30 tablet 2 12/30/2018 Active Comment: Take 1 tablet by mouth once daily. benzonatate benzonatate (TESSALON 06-17-2018 Lisa ([facility]) [facility] PERLE) 100 mg capsule King Lisa ([id number]) Indications: ([facility]) Eboni Sinobronchitis Take 2 capsules by mouth three times daily as needed. 30 capsule 0 06/17/2018 Active Comment: Take 2 capsules by mouth thr ee times daily as needed. Betamethasone / clotrimazole-betamethasone 12-30-2018 Miki Roberto Clotrimazole (LOTRISONE) cream Indications: (Pa-C) Clinic Tinea pedis of left foot Apply Jorje Livingston (00365) 1 application to affected area Kris twice daily. UNTIL CLEAR FOR UP (Pa-C) TO 2-3 WEEKS 15 g 1 12/30/2018 Jorje Active Comment: Apply 1 application to affec lamar area twice daily. UNTIL CLEAR FOR UP TO 2-3 WEEKS Doxycycline doxycycline monohydrate 06-17-2018 Lisa ([facility]) [facility] 100 mg tablet King TraciLisa (17365) Indications: ([facility]) Eboni Sinobronchitis Take 1 tablet by mouth twice daily. 20 tablet 0 06/17/2018 Active Comment: Take 1 tablet by mouth twice daily. formoterol / mometasone-formoterol 12-30-2018 Miki Back and Mometasone (DULERA) 200-5 mcg/actuation (Pa-C) [facility] (12580) inhaler Indications: Miki Ponce Moderate persistent asthma (Pa-C) Jorje without complication Inhale 2 Puffs as instructed twice daily. Rinse mouth and spit after each use. 1 Inhaler 1 12/30/2018 Active Comment: Inhale 2 Puffs as instructed twice daily. Rinse mouth and spit after each use. Ibuprofen ibuprofen (MOTRIN) 800 12-30-2018 Miki Ponce (Reese-C) [facility] mg tablet Take 1 tablet Jorje Ponce (99644) by mouth every 8 hours (Pa-C) Jorje as needed (FOR PAIN. TAKE WITH FOOD). 30 tablet 2 12/30/2018 Active Comment: Take 1 tablet by mouth every 8 hours as needed (FOR PAIN. TAKE WITH FOOD). Lisinopril lisinopril (ZESTRIL, 12-30-2018 Miki Ponce (Pa-C) [facility] PRINIVIL) 20 mg tablet Jorje Ponce ( 27653) Indications: Essential (Pa-C) Recinos hypertension Take 1 tablet by mouth once daily. 30 tablet 2 12/30/2018 Active Comment: Take 1 tablet by mouth once daily. Loratadine loratadine (CLARITIN) 10 06-28-2018 Naty ([place]) [facility] mg tablet Indications: Podlogar Naty (44 195) Moderate persistent ([place] [place]) Podlogar asthma without complication TAKE 1 TABLET BY MOUTH EVERY DAY 30 tablet 2 06/28/2018 Active Comment: TAKE 1 TABLET BY MOUTH EVERY DAY Problems Active Problems Category Problem Name Status Date Location Alcohol-related Alcohol dependence Active 05-16-2015 - [facility] disorders (22923) Anxiety disorders Generalized anxiety Active 05-16-2015 - [facility] disorder (08558) Asthma Unspecified asthma, Active 05-16-2015 - [facility] alth System uncomplicated (48605) Essential hypertension Essential (primary) Active 05-16-2015 [facility] hypertension (33984) Other connective tissue Pain of toe of left Active 05-16-2015 - [facility] disease foot (01011) Other nutritional; Morbid obesity Active 11-28-2017 - [facility] endocrine; and (77163) metabolic disorders Other upper respiratory Allergic rhinitis Active 05-16-2015 - [facility] disease (82920) Substance-related Nicotine dependence, Active 05-27-2017 [facility] disorders cigarettes, (48038) uncomplicated Unclassified Sleep apnea, Active 05-27-2017 - [facility] Health Sy stem unspecified (69292) Past or Other Problems Category Problem Name Status Date Location Allergic reactions Allergy status to Completed 05-20-2017 [facility] narcotic agent System (92052 ) status Chronic obstructive Bronchitis, not Completed 05-27-2017 [facility] pulmonary disease and specified as acute System (49425) bronchiectasis or chronic Other lower respiratory Cough Completed 05-20-2017 [facility] disease System (38790) Other screening for Liver function tests Completed 05-16-2015 - [facility] suspected conditions abnormal (48534) (not mental disorders or infectious disease) Other upper respiratory Nasal congestion Completed 05-20-2017 [facility] disease System (84362) Other upper respiratory Acute pharyngitis, Completed 05-20-2017 [facility] Health infections unspecified System (25639) Otitis media and related Acute serous otitis Completed 7 - [facility] conditions media, bilateral System (000 00) Superficial injury; Contusion of left Completed 03-11-2017 [facility] contusion front wall of System (88417) thorax, initial encounter Viral infection Other viral agents Completed 03-11-2017 - [facility] as the cause of System (0000 0) diseases classified elsewhere Results Result Name Value Range Unit Interpretation Flag Date Location obsolete on 2020-02 OBSOLETE Refill (UCWSTR) Normal 03-06-2020 [facility] KELECHI VALENCIA ([id number]) 1980 [facility] Date Time Provider Department ([id number]) 03/06/20 KARI LANDAVERDE (REESE) [facility] During your [...] * *Final Report* * * Normal 05-04 [facility] FRONTAL/LAT DATE OF EXAM: May 04 2019 [facility] - XR CHEST 2V FRONTAL/LAT / (27720) PROCEDURE REASON: Cough, new onset * * [...] bony abnormalities. IMPRESSION: No acute radiographic abnormality. Bundle Wrapper: RONDA Transcribe Date/Time: May 04 2019 3:32P Dictated by : DARRICK VIVEROS MD This examination was interpreted and the report reviewed and electronically signed by: DARRICK VIVEROS MD on May 04 2019 3:33PM EST ed triage note on ED Triage Note HNO ID: [id number] Normal 2018 [facility] Author: REESE Greenwood (Pa) [facility] Service: Emergency Medicine ([id number]) Author Type: Physician Journeyman Electrician Type: ED Triage Notes Filed: 05/04/2019 2:43 [...] on 05-05-08 ED PROV NOTE HNO ID: [id number] Normal 05-04-20 [facility] Author: Amairani Lyod) REESE Dennis [facility] Service: Emergency Medicine ([id number]) Author Type: Physician Journeyman Electrician Type: ED Provider Notes Filed: 05/04/2019 3:49 PM Note Text: ED Provider Note Patient Name: Kelechi Valencia SERVICE DATE: 05/04/19 History Patient presents with: Nasal Congestion: Pt ambulatory to triage, c/o congestion AN D productive cough w/ green sputum x a few days. Pt denies fever. Cough 38-year-old male with past medical history significant for u ncontrolled hypertension, medication noncompliance, asthma presents to [facility] ED with complaints of cough and congestion as well as wheezing and c hest tightness for the last 3-4 days. He has a history of asthma, reports t hat he ran out of his albuterol inhaler yesterday. He has not taken any of her expw-bij-mlihuma medications for cough or congestion. He rep [...] asthma exacerba tion, instructed to get Sudafed [id number] for nasal congest ion, refill the patient's [...] ed note on ED NOTE HNO ID: [id number] Normal 05-04-2019 [facility] Author: Carmencita [facility] ([id number]) Service: Emergency Medicine Author Type: Registered Nurse Type: ED Notes Filed: 05/04/2019 3:46 PM Note Text: Waiting for reg in order to print discharge instructions. ED NOTE HNO ID: [id number] Normal 05-04-2019 [facility] Author: [facility] ([id number]) Service: Emergency Medicine Author Type: Registered Nurse Type: ED Notes Filed: 05/04/2019 3:45 PM Note Text: Patient returned to the Emergency Department. ED NOTE HNO ID: [id number] Normal 05-04-2019 [facility] Author: Carmencita (Rn) [facility] ([id number]) Service: Emergency Medicine Author Type: Registered Nurse Type: ED Notes Filed: 05/04/2019 3:26 PM Note Text: Patient transported to [facility] with Tech. ED NOTE HNO ID: [id number] Normal 05-04-2019 [facility] Author: Dax RamRnShari [facility] ([id number]) Service: Emergency Medicine Author Type: Registered Nurse Type: ED Notes Filed: 05/04/2019 2:44 PM Note Text: XR notified pt is ready for exam cr chest pa/lat on 2017-05-20 CR Chest PA/LAT Patient Name: KELECHI VALENCIA 05-20-2017 [facility] FIN: ( [id number]) [id number] Diagnostic Radiology Exam Date/Time 05/20/2017 14:49:10 EDT Exam CR Chest PA/LAT Ordering Physician PRASANNA LEONG ROBERT Accession Number [id number] CPT4 Codes 04663 () Reason For Exam cough Report PA [...] Chest PA/LAT Patient Name: KELECHI VALENCIA 03-11-2017 [facility] FIN: ( [id number]) [id number] Diagnostic Radiology Exam Date/Time 03/11/2017 15:25:13 EDT Exam CR Chest PA/LAT Ordering Physician MD KONG SHELDON H Accession Number [id number] CPT4 Codes 29369 () Reason For Exam cough and rib [...] Reason Provider Location 05-27-2017 Ambulatory Essential (primary) [employer] [facility] alth hypertension [employer] (14156) Scottie Pan 05-20-2017 Ambulatory Cough UNKNOWN PROVIDER [facility] Heal h [employer] (53563) Connected 03-11-2017 Ambulatory Other viral agents as Kasi Bib[facility] the cause of diseases [employer] (32171) classified elsewhere Marcell [employer] 03-06-2020 - Refill Uncomplicated moderate Kari R (Pa) [facility] 03-06-2020 persistent asthma Care Comment: Refill Request Plan of Treatment Plan Description Date Location LIPID SCREEN LIPID SCREEN 12-21-2022 [facility] ([id number]) INFLUENZA (#1) INFLUENZA (#1) 2020 [facility] (70980) ANNUAL PCP TEAM CHRONIC ANNUAL PCP TEAM CHRONIC 12-31-2019 [facility] DISEASE VISIT DISEASE VISIT (65891) ONE PNEUMOVAX PRIOR TO ONE PNEUMOVAX PRIOR TO AGE 1107-03-2001 [facility] AGE 67 65 (23618) DTAP,TDAP,TD (1 - Tdap) DTAP,TDAP,TD (1 - Tdap) 2001 [facility] (48555) BP CONTROLLED (<130/80) BP CONTROLLED (<130/80) 2000 [facility] (98145) HEPATITIS C SCREENING HEPATITIS C SCREENING 2000 [facility] (76715) HIV SCREENING HIV SCREENING 2000 [facility] (46020) SPIROMETRY SPIROMETRY 2000 [facility] (90344) Payers Payer Name Policy Number Location [facility] ([id number]) [place] [id number] [facility] (44 195) The following information is from the original human readable contentNo Payer Records FoundNo Payer Records FoundNo Payer Records FoundNo Payer Records FoundNo Payer Records Found Social History Type Social History Date Location Description Tobacco smoking status Former smoker 05-04-2019 [facility] (69614) History of tobacco use Current smoker 04-26-1997 - [facility] 11-27-2018 (51421) History of tobacco use Cigarette Smoker 04-26-1997 - [facility] 11-27-2018 (51022) Cigarettes smoked 05-04-2019 [facility] ic current (pack per day) (46329) - Reported Tobacco use and Never used 05-04-2019 [facility] exposure (07281) Alcohol intake Current drinker of 05-04-2019 [facility] mami alcohol (finding) (56262) Alcohol Comment 5 beers per week 04-26-2015 [facility] c (28592) Sex Assigned At Not on file [facility] (57004) The following information is from the original [...] Documents on File Type Date Recorded Patient Public Improvement Inspector Explanati on Advance Directive(s) 05/04/2019 3:43 PM [...] BE BASED ON THE PRIMARY CLINICAL RECORDS. [facility] provides no warranty or guarantee of the accuracy or completeness of information in this document. UNRECOGNIZED CONTENT PROVIDED BELOW FOR UNRECOGNIZED SECTION No Status Records FoundNo Status Records FoundNo Status Records FoundNo Status Records Found UNRECOGNIZED CONTENT PROVIDED BELOW FOR UNRECOGNIZED SECTION INFORMATION SOURCE DATE CREATED AUTHOR AUTHOR'S ORGANIZATIO N 02/20/2018 [facility] DATE CREATED AUTHOR AUTHOR'S ORGANIZATIO N 05/04/2019 [facility] DATE CREATED AUTHOR AUTHOR'S ORGANIZATIO N 05/04/2019 [facility] DATE CREATED AUTHOR AUTHOR'S ORGANIZATIO N 04/22/2020 [facility] UNRECOGNIZED CONTENT PROVIDED BELOW FOR UNRECOGNIZED SECTION Source Comments In the event this information is protected by the Federal Confidentiality of Alcohol and Drug Abuse Patient Records regulations: The Federal rules restrict any use of the information to criminally investigate or prosecute any alcohol or drug abuse patient.[facility] UNRECOGNIZED CONTENT PROVIDED BELOW FOR UNRECOGNIZED [...]
== END 2020-02-05 18:35 | disposition home or self-care (01) ==
LOC: ED 17:56
PROVIDERS: Emergency Provider Emergency Medicine
DX: K05.10 Chronic gingivitis, plaque induced (principal); I10 Essential (primary) hypertension; Z87.891 Personal history of nicotine dependence; Z88.5 Allergy status to narcotic agent
CPT/HCPCS: 96365; 99283

== ENCOUNTER 2020-02-21 23:50 | Emergency (ER) | payer MEDICAID, SELFPAY ==
[2020-02-21 23:50] VITALS: BP 146/74; PULSE 120; RESP 15; TEMP 37.1; O2SAT 95; BMI 34.8
[2020-02-22] VITALS (7 sets, daily range): BP systolic 161–199; BP diastolic 90–157; PULSE 86–89; RESP 15–22; O2SAT 85–98
--- NOTE | 2020-02-22 00:17 | ED.VIS.GEN ---
History of Present Illness Chief Complaint: Mental Health Informant: Patient Onset: Days Context: Gradual Onset Timing: Intermittent Current Severity: Moderate Maximum Severity: Moderate Narrative: The patient is a 39-year-old male with no known history of psychiatric disease that presents to the emergency department with increasing auditory and visual hallucinations. Patient has a longstanding history of methamphetamine abuse. He was recently in [place]. He states he went through a detox program and had been clean. He moved back to [place] and relapsed twice. He states his been using methamphetamines almost constantly for the past 16 days. He states he is now to the point where he is extremely paranoid. He states tonight, he was running on the streets because he thought someone was chasing him. He denies being suicidal or homicidal. He states that the paranoia is affecting his normal living. He denies any fevers, chills, or sweats. Prior similar symptoms: No Recent Illness/Hospitalization: No Past Medical History - Allergies and Home Meds Allergies/Adverse Reactions: Allergies hydrocodone [From Vicodin] Adverse Reaction (Verified 02/22/20 00:00) Itching POLLEN Allergy (Uncoded 02/05/20 17:08) Shortness of breath Primary Care Physician: Care Physician,No Primary [Primary Care Provider] - Prior records reviewed: Yes Past Medical History: None Surgical History: - - Reviewed Smoking Status: Former smoker Drugs: - - Methamphetamines Review of Systems General: Denies: Chills, Fever, Sweats Eyes: Denies: Visual changes - bilaterally, Diplopia ENT: Denies: Rhinorrhea, Sore throat Cardiovascular: Denies: Chest pain, Palpitations Respiratory: Denies: Dyspnea, Cough, Dyspnea on exertion Gastrointestinal: Denies: Abdominal pain, Nausea, Vomiting, Diarrhea, Melena, Hematochezia Genitourinary: Denies: Dysuria, Hematuria, Frequency Musculoskeletal: Denies: Back pain, Extremity Pain Skin: Denies: Rash, Wounds Neurological: Denies: Headache, Weakness, Numbness Psych: Reports: Anxiety Physical Exam Vital Signs/Narrative: Vital Signs Temp Pulse Resp BP Pulse Ox 02/21/20 23:50 98.8 F 120 H 15 146/74 H 95 Inital Vital Signs reviewed: Yes General: Well nourished, Well developed, No Acute Distress Head: Normocephalic, Atraumatic Eyes: Perrl, EOMI ENT: Moist mucous membranes, No rhinorrhea Neck: Supple, Nontender Cardiovascular: Regular rate, Regular rhythm, No murmurs Respiratory: No distress, CTA bilaterally, Chest nontender Abdomen: Soft, Nontender, Nondistended, Normal bowel sounds Back: Nontender, Normal Inspection Extremities: Nontender, No edema Skin: Normal color, No rash Neurological: Alert, Oriented x3, Cranial nerves II-XII grossly intact, Normal Strength, Normal Sensation Psychological: Normal affect, Normal Mood Diagnostic/Tx/Re-eval Abnormal Lab Results 02/22/20 02/22/20 02/22/20 00:32 00:32 00:32 WBC 11.8 H RBC 4.56 L Hgb 13.2 Hct 41.0 MCV 89.9 MCH 28.9 MCHC 32.2 RDW Std Deviation 43.0 RDW Coeff of Jay Jay 13.2 Plt Count 414 MPV 9.0 Immature Gran % (Auto) 0.300 Neut % (Auto) 69.9 Lymph % (Auto) 16.8 L [place]inole % (Auto) 9.6 Eos % (Auto) 3.1 Baso % (Auto) 0.3 Absolute Neuts (auto) 8.3 H Absolute Lymphs (auto) 1.98 Nucleated RBC % 0 Sodium 144 Potassium 2.9 L Chloride 109 H Carbon Dioxide 29.0 Anion Gap 6 BUN 12 Creatinine 1.06 Estim Creat Clear Calc 101.62 Est GFR (MDRD) Af Amer 101 Est GFR (MDRD) Non-Af 83 BUN/Creatinine Ratio 11.3 Glucose 96 Calcium 8.5 Ethyl Alcohol < 3.0 - Medical Decision Making The patient is internally stimulated. He has been having paranoia. My suspicion is that this is likely drug-induced. He has no history of schizophrenia or bipolar disorder. The patient is requesting medication to help him relax. He was given IM Geodon and Ativan. Metabolic screening exam was performed. He is mildly hypokalemic. Otherwise labs are unremarkable. The patient is now sleeping comfortably. Plan will be to reevaluate him in the morning. Again, my suspicion is this is likely secondary to his amphetamine use. I do feel that if he is not feeling paranoid and is feeling improved, he can safely be discharged with outpatient follow-up. He is counseled on abstaining from medications. He will be given referral to 180. Impression 1. Drug-induced paranoia ED Disposition - Plan for ED Patient: Instructions: ED AMPHETAMINE ABUSE Referrals: [facility] [STAFF PHYSICIAN] -
[2020-02-22] MEDS: LORazepam 2 MG/ML Syringe IM (00:24)
[2020-02-22] MEDS: Ziprasidone IM 20 MG/ML VIAL IM (00:24)
[2020-02-22 00:44] LABS: Absolute Lymphocyte Count 1.98 X10^3/uL (0.83-4.51); Absolute Neutrophil Count 8.3 X10^3/uL (2.0-7.7); Basophil# 0.03 X10^3/uL; Basophil% 0.3 % (0-1); Eosinophil# 0.37 X10^3/uL; Eosinophils% 3.1 % (0-5); Hemoglobin 13.2 g/dL (13.0-16.5); Lymphocyte # 1.98 X10^3/ul (4.0); Lymphocyte % 16.8 % (19-41); Mean Corp Hgb Conc 32.2 g/dL (32-36); Mean Corpuscular Hgb 28.9 pg (27.0-32.0); Mean Corpuscular Volume 89.9 fL (80-94); Monocyte# 1.13 X10^3/uL; Monocyte% 9.6 % (0-10); NRBC Flagged by Analyzer 0 % (0-5); Neutrophil # 8.25 X10^3/uL (2.7-7.7); Neutrophil % 69.9 % (47-70); Platelet Count 414 K/mm3 (150-450); RBC Distribution Width CV 13.2 % (11.6-14.6); Red Blood Count 4.56 M/mm3 (4.6-6.2); White Blood Count 11.8 K/mm3 (4.4-11.0)
[2020-02-22 01:00] LABS: Alcohol, Blood (Medical)-Serum < 3.0 mg/dL
[2020-02-22 01:02] LABS: Anion Gap 6 (5-15); BUN 12 mg/dL (7-18); BUN/Creat Ratio 11.3 RATIO (10-20); Calcium,Total 8.5 mg/dL (8.5-10.1); Chloride 109 mmol/L (98-107); Creatinine, Serum 1.06 mg/dL (0.70-1.30); EST Glomerular Filtration Rate 83 mL/min (>60); Est Glom Filt Rate - Afr Amer 101 mL/min (>60); Estimated Creatinine Clearance 101.62 ml/min; Glucose 96 mg/dL (74-106); Potassium 2.9 mmol/L (3.5-5.1); Sodium Level 144 mmol/L (136-145)
--- NOTE | 2020-02-22 07:27 | ED.RN ---
pt remains sleepy but is arousable. pt aware breakfast was ordered
--- NOTE | 2020-02-22 09:28 | ED.RN ---
pt arousable. was able to eat breakfast with a lot of encouragement. pt continually falls asleep
== END 2020-02-22 10:30 | disposition home or self-care (01) ==
LOC: ED 02-22 00:25
PROVIDERS: Emergency Provider Emergency Medicine
DX: F22 Delusional disorders (principal); F15.10 Other stimulant abuse, uncomplicated; Z87.891 Personal history of nicotine dependence; Z88.5 Allergy status to narcotic agent
CPT/HCPCS: 80048; 80320; 85025; 96372; 99282; G0480; J3486

== ENCOUNTER 2020-02-23 03:47 | Emergency (ER) | payer MEDICAID, SELFPAY ==
[2020-02-23 03:48] VITALS: BP 159/90; PULSE 96; RESP 14; TEMP 36.9; O2SAT 99; BMI 38.4
--- NOTE | 2020-02-23 03:58 | ED.DCSUM_ITS ---
- ER Visit Summary Date of Service: 02/23/20 Chief Complaint: Pt is concerned for chemical exposure History of Present Illness: The patient is a 39 M 3 of underlying psychiatric illness and methamphetamine abuse. States tonight he picked up a cooler felt tingling in his hands and thought he was having a reaction to something detox. He washed his hands off and threw some water on himself. He was brought in by paramedics. He states he never saw any swelling or reaction to his hands. He denies any other complaints. Physical Examination: Male no acute distress vital signs stable afebrile. H EENT exam unremarkable. Neck nontender. Lungs clear to auscultation bilaterally. Heart regular rhythm no murmur. Abdomen soft nontender normal bowel sounds no peritoneal signs. Patient moving all 4 extremities. Neurovascular intact. There is no signs of swelling or trauma. No signs of any type of allergic reaction or chemical exposure causing irritation of the skin. Neurologically is awake and alert with no focal motor deficits. Test Results: None Emergency Department Course and Treatment: Clinically the patient is stable right now. There is no signs of any type of reaction to a chemical or otherwise. Treatment Plan: Follow-up as needed. Disposition: Discharge Impression: Valuation for potential chemical exposure History of mental illness History of methamphetamine abuse This note was generated with [employer] dictation software. It may contain incorrect words, spelling, and punctuation that were not noted in review of the chart samuel or to signing ED Disposition - Plan for ED Patient: Referrals: Care Physician,No Primary [Primary Care Provider] -
--- NOTE | 2020-02-23 04:02 | ED.DEP ---
ED Disposition - Plan for ED Patient: Referrals: Annabel Quiroz [NON-STAFF] - 3-5 Days if not improving
== END 2020-02-23 04:18 | disposition home or self-care (01) ==
LOC: ED 04:04
PROVIDERS: Emergency Provider Emergency Medicine
DX: Z77.098 Contact with and (suspected) exposure to other hazardous, chiefly nonmedicinal, chemicals (principal); F15.10 Other stimulant abuse, uncomplicated
CPT/HCPCS: 99284

== ENCOUNTER 2020-08-21 15:19 | Emergency (ER) | payer MEDICAID, SELFPAY ==
[2020-08-21 15:19] VITALS: BP 196/126; PULSE 128; RESP 17; TEMP 36.4; O2SAT 97; BMI 33.3
[2020-08-21 15:55] LABS: Absolute Lymphocyte Count 2.93 X10^3/uL (0.83-4.51); Absolute Neutrophil Count 7.2 X10^3/uL (2.0-7.7); Basophil# 0.06 X10^3/uL; Basophil% 0.5 % (0-1); Eosinophil# 0.25 X10^3/uL; Eosinophils% 2.2 % (0-5); Hematocrit 45.8 % (40-54); Hemoglobin 14.6 g/dL (13.0-16.5); Lymphocyte # 2.93 X10^3/ul (4.0); Lymphocyte % 25.6 % (19-41); Mean Corp Hgb Conc 31.9 g/dL (32-36); Mean Corpuscular Hgb 28.6 pg (27.0-32.0); Mean Corpuscular Volume 89.8 fL (80-94); Mean Platelet Vol. 8.8 fl (6.2-12.0); Monocyte# 0.93 X10^3/uL; Monocyte% 8.1 % (0-10); NRBC Flagged by Analyzer 0 % (0-5); Neutrophil # 7.24 X10^3/uL (2.7-7.7); Neutrophil % 63.3 % (47-70); Platelet Count 404 K/mm3 (150-450); RBC Distribution Width CV 12.4 % (11.6-14.6); RBC Distribution Width SD 40.9 fl (35.1-43.9); White Blood Count 11.4 K/mm3 (4.4-11.0)
--- NOTE | 2020-08-21 16:11 | ED.DCSUM_ITS ---
History of Present Illness Informant: Patient Onset: Weeks - 2 weeks Context: Gradual Onset Conflict: Family Timing: Continuous Current Severity: Severe Maximum Severity: Severe Worsened by: - - methamphetamine use Relieved by: nothing Associated Symptoms: Flight of Ideas, Increased activity, Agitated, Confusion, Paranoia, Visual Hallucinations Specific plan (suicidal thought): none Narrative: 40-year-old male brought in under pink slip by the [employer] police for paranoia and delusions. Police state they have been called by him numerous times over the last 2 weeks. Today he called them stating that he found a young girl's body in the [place]. Police responded and he let them through the [place] until they came across a [place] with partially frozen water. He waited into this to try to get to the other side and then realized that the location where he thought the body was was high up on an area where he would be unable to walk to. He then stated to the police that he actually just felt this person spirit and he did not actually see the body. Police state that he has had numerous similar calls to them over the last 2 weeks and these calls have escalated in severity to today which prompted them to pink slip him. Patient does admit to frequent methamphetamine use. He is not suicidal or homicidal. He denies any auditory hallucinations. He does state he initially thought he saw this girls body but now states that he felt her spirit and did not actually see anything. He denies any alcohol use or any other drug use. He denies any psychiatric history. Prior similar symptoms: Yes Recent Illness/Hospitalization: No <Carrington Tabares - Last Filed: 08/21/20 17:26> <Bhavesh Ahumada - Last Filed: 08/21/20 17:39> Chief Complaint: Mental Health Past Medical History Prior records reviewed: Yes Past Medical History: None Surgical History: no surgical history, - - Reviewed Lives: Alone Smoking Status: Current every day smoker Alcohol: None Drugs: - - Meth <Carrington Tabares - Last Filed: 08/21/20 17:26> <Bhavesh Ahumada - Last Filed: 08/21/20 17:39> - Allergies and Home Meds Allergies/Adverse Reactions: Allergies hydrocodone [From Vicodin] Adverse Reaction (Verified 08/21/20 15:26) Itching POLLEN Allergy (Uncoded 08/21/20 15:26) Shortness of breath Primary Care Physician: [facility] [STAFF PHYSICIAN] - Review of Systems All systems negative except as indicated General: Denies: Chills, Fever, Sweats Eyes: Denies: Visual changes - bilaterally, Diplopia ENT: Denies: Rhinorrhea, Sore throat Cardiovascular: Denies: Chest pain, Palpitations Respiratory: Denies: Dyspnea, Cough, Dyspnea on exertion Gastrointestinal: Denies: Abdominal pain, Nausea, Vomiting, Diarrhea, Melena, Hematochezia Genitourinary: Denies: Dysuria, Hematuria, Frequency Musculoskeletal: Denies: Back pain, Extremity Pain Skin: Denies: Rash, Wounds Neurological: Denies: Headache, Weakness, Numbness Psych: Denies: Depression, Anxiety, Suicidal thoughts, Suicidal ideations <Carrington Tabares - Last Filed: 08/21/20 17:26> Physical Exam Vital Signs/Narrative: Vital Signs Temp Pulse Resp BP Pulse Ox 08/21/20 15:19 97.5 F L 128 H 17 196/126 H 97 Inital Vital Signs reviewed: Yes General: Well nourished, Well developed Head: Normocephalic, Atraumatic Eyes: Perrl, EOMI ENT: Moist mucous membranes, No rhinorrhea Neck: Supple, Nontender Cardiovascular: Regular rate, Regular rhythm, No murmurs Respiratory: No distress, CTA bilaterally, Chest nontender Abdomen: Soft, Nontender, Nondistended, Normal bowel sounds Back: Nontender, Normal Inspection Extremities: Nontender, No Edema Skin: Normal color, No rash Neurological: Alert, Oriented x3, Cranial nerves II-XII grossly intact, Normal Strength, Normal Sensation Psych: Normal Speech Pattern, No suicidal or homicidal ideation, Normal Stable Appropriate Affect, Normal Appearance, Flight of Ideas, Delusions <Carrington Tabares - Last Filed: 08/21/20 17:26> Vital Signs/Narrative: Vital Signs Temp Pulse Resp BP Pulse Ox 08/21/20 15:19 97.5 F L 128 H 17 196/126 H 97 <Bhavesh Ahumada - Last Filed: 08/21/20 17:39> Diagnostic/Tx/Re-eval Laboratory Results 08/21/20 08/21/20 08/21/20 15:45 15:45 15:45 WBC 11.4 H RBC 5.10 Hgb 14.6 Hct 45.8 MCV 89.8 MCH 28.6 MCHC 31.9 L RDW Std Deviation 40.9 RDW Coeff of Jay Jay 12.4 Plt Count 404 MPV 8.8 Immature Gran % (Auto) 0.300 Neut % (Auto) 63.3 Lymph % (Auto) 25.6 Roane % (Auto) 8.1 Eos % (Auto) 2.2 Baso % (Auto) 0.5 Absolute Neuts (auto) 7.2 Absolute Lymphs (auto) 2.93 Nucleated RBC % 0 Sodium 141 Potassium 3.1 L Chloride 107 Carbon Dioxide 31.0 Anion Gap 3 L BUN 13 Creatinine 1.03 Estim Creat Clear Calc 109.89 Est GFR (MDRD) Af Amer 104 Est GFR (MDRD) Non-Af 86 BUN/Creatinine Ratio 12.6 Glucose 99 Calcium 8.6 Urine Opiates Screen Urine Methadone Screen Ur Barbiturates Screen Ur Phencyclidine Scrn Ur Amphetamines Screen U Methamphetamin-MDMA U Benzodiazepines Scrn Urine Cocaine Screen U Cannabinoids Screen Ur Drug Screen Comment Ethyl Alcohol < 3.0 08/21/20 17:05 WBC RBC Hgb Hct MCV MCH MCHC RDW Std Deviation RDW Coeff of Jay Jay Plt Count MPV Immature Gran % (Auto) Neut % (Auto) Lymph % (Auto) Roane % (Auto) Eos % (Auto) Baso % (Auto) Absolute Neuts (auto) Absolute Lymphs (auto) Nucleated RBC % Sodium Potassium Chloride Carbon Dioxide Anion Gap BUN Creatinine Estim Creat Clear Calc Est GFR (MDRD) Af Amer Est GFR (MDRD) Non-Af BUN/Creatinine Ratio Glucose Calcium Urine Opiates Screen NEGATIVE Urine Methadone Screen NEGATIVE Ur Barbiturates Screen NEGATIVE Ur Phencyclidine Scrn NEGATIVE Ur Amphetamines Screen POSITIVE H U Methamphetamin-MDMA POSITIVE H U Benzodiazepines Scrn NEGATIVE Urine Cocaine Screen NEGATIVE U Cannabinoids Screen POSITIVE H Ur Drug Screen Comment Ethyl Alcohol Restraints applied: No Repeat interview and exam performed by/time: [id number] Patient presented pink slip by local police. On extensive interviewing by myself Dr. Menjivar and our social security specialist Molly patient is not paranoid or delusional. He does endorse methamphetamine use. His toxicology was positive for methamphetamines, amphetamines and THC. On multiple repeat exams the patient has a normal speech pattern he has normal logical sequential goal- directed thoughts. His vital signs are stable. His labs are unremarkable. We do not feel he requires psychiatric admission. He will be discharged with referral to 180 <Carrington Tabares - Last Filed: 08/21/20 17:26> Patient was seen with me. I did a [id number] examination with the patient. Patient presents with abnormal behavior that was noticed today. Police brought the patient to the emergency department because they felt he was delusional. Patient admits to using methamphetamines. Police reports that the patient told them that he saw a girl fall into a shallow tus[place]ora. Patient then later told police that it was the spirit of the girl that fell. Vital signs are stable. Patient is afebrile. Patient is in no acute distress. Oral mucosa is pink and moist. Neck is supple. Trachea is midline. There is no JVD or lymphadenopathy. Heart was regular rate and rhythm. Lungs are clear and equal bilaterally. Abdomen is soft. Bowel sounds are normal. There is no tenderness. Cranial nerves II through XII are intact. There are no focal motor or sensory deficits noted. Patient denies any suicidal or homicidal ideations. Patient denies any visual or auditory hallucinations. Social work was in to evaluate the patient. She also does not feel the patient is having paranoid or delusional ideations at this time. She does not feel the patient is suicidal or homicidal. She does not feel the patient warrants inpatient psychiatric treatment at this time. Patient was instructed to stop using methamphetamines. Patient was instructed to follow-up with 180. Patient was instructed to return if worse in any way. Patient understood and was agreeable with the plan. All questions were answered. <Bhavesh Ahumada - Last Filed: 08/21/20 17:39> ED Disposition <Carrington Tabares - Last Filed: 08/21/20 17:26> <Bhavesh Ahumada - Last Filed: 08/21/20 17:39> - Plan for ED Patient: Disposition: Home or Assisted Living Diagnosis: Methamphetamine abuse Instructions: ED Drug Abuse Referrals: [facility] [STAFF PHYSICIAN] -
[2020-08-21 16:12] LABS: Anion Gap 3 (5-15); BUN 13 mg/dL (7-18); BUN/Creat Ratio 12.6 RATIO (10-20); Calcium,Total 8.6 mg/dL (8.5-10.1); Chloride 107 mmol/L (98-107); Creatinine, Serum 1.03 mg/dL (0.70-1.30); EST Glomerular Filtration Rate 86 mL/min (>60); Est Glom Filt Rate - Afr Amer 104 mL/min (>60); Estimated Creatinine Clearance 109.89 ml/min; Glucose 99 mg/dL (74-106); Potassium 3.1 mmol/L (3.5-5.1); Sodium Level 141 mmol/L (136-145)
[2020-08-21 16:19] LABS: Alcohol, Blood (Medical)-Serum < 3.0 mg/dL
--- NOTE | 2020-08-21 16:59 | CM.ED ---
Social Work Consult: Mental Health Informant: Kristopher Martin Chief Complaint: Patient pink slipped by police for visual hallucinations of seeing a women. Patient reports I am feeling better now. Marital/Social History: Single Living Situation: I have a safe place to stay. Support/Resources: Patient reports to have needed support in the community. Education/Employment: Patient denies issues with comprehension or understanding. Mental Health History/Treatment: Denies mental health history. No history of inpatient psychiatric placements or mental health services per patient. Triggers/Stressors: Patient reports to be actively using meth. Substance Abuse: I am a grown man, I use drugs. Patient admits to Meth use. Risk to Self/Others: Patient denies suicidal/homicidal thoughts, plans, or attempt. Patient denies history of suicidal thoughts, plans, or attempts. Patient denies self harming behaviors. Mental Status Exam: A&Ox3 Appearance/General Behavior: Directable. Calm. Mood/Affect: Anxious. Patient asking when patient is able to leave often during conversation. Thought Process: Patient denies active visual or auditory hallucinations. Patient did admit to seeing something earlier. Assessment: Met with patient in room. Introduced self and social insurance analyst role. Patient agreeable to speak with this social insurance analyst. Patient inquiring about when patient is able to discharge to home. Patient aware of current pink slip in place and need to complete medical work-up. Patient verbally reports plan to provide urine sample for medical team. Patient confirms to understand that patient is not able to leave currently. Collaborating with Kristopher Martin and Dr. Ahumada. Plan will be to wait urine tox result to make further decisions. This social insurance analyst is not currently identifying any criteria for patient to be admitted to inpatient psychiatric facility. Will continue to follow. MARY Hopkins
[2020-08-21 17:22] LABS: Amphetamine Urine VISTA POSITIVE (<1000 ng/mL); Barbiturate Urine VISTA NEGATIVE (< 200 ng/mL); Benzodiazepine Urine VISTA NEGATIVE (< 200 ng/mL); Cocaine Urine VISTA NEGATIVE (< 300 ng/mL); Ecstacy Urine VISTA POSITIVE (< 500 ng/mL); Methadone Urine VISTA NEGATIVE (< 300 ng/mL); PCP Urine VISTA NEGATIVE (< 25 ng/mL); THC Urine VISTA POSITIVE (< 50 ng/mL); Vista UDS pH Range 7
--- NOTE | 2020-08-21 18:11 | CM.ED ---
Social Work Patient medically cleared. Collaborating with medical team. Plan is for patient to discharge to home with resources for substance abuse. Gasper Brown MSW, JESSIE-S
== END 2020-08-21 18:00 | disposition home or self-care (01) ==
PROVIDERS: Emergency Provider Physician Assistant Medical
DX: F15.10 Other stimulant abuse, uncomplicated (principal); F17.200 Nicotine dependence, unspecified, uncomplicated; Z88.5 Allergy status to narcotic agent
CPT/HCPCS: 36415; 80048; 80307; 80320; 85025; 99284; G0480

== ENCOUNTER 2020-08-26 08:23 | Emergency (ER) | payer MEDICAID, SELFPAY ==
[2020-08-26 08:24] VITALS: BP 161/123; PULSE 99; RESP 20; TEMP 36; O2SAT 96; BMI 33.9
--- NOTE | 2020-08-26 08:36 | ED.DCSUM_ITS ---
History of Present Illness Chief Complaint: Asthma Informant: Patient Onset: Yesterday Activity at onset: - - gradual onset after exposed to dust Timing: Continuous Quality: Wheezing Current Severity: Moderate Maximum Severity: Moderate Worsened by: Exertion Relieved by: Rest Associated Symptoms: Negative for: Chills, Cough, Fever Chest Pain: Tightness Narrative: Patient feels like his asthma is flaring up and he does not have any more al buterol so he presents asking for a breathing treatment and an inhaler. Patient presents during the national coronavirus emergency declaration/pandemic. Denies any known contact with anyone infected with COVID-19, and denies having had the illness that they know of this past year or so. Denies traveling out of the immediate area recently. He does not have any other symptoms. - Past Medical History (1) Asthma Status: Chronic (2) Sleep apnea Status: Chronic (3) HTN (hypertension) Status: Chronic Past Medical History - Allergies and Home Meds Allergies/Adverse Reactions: Allergies hydrocodone [From Vicodin] Adverse Reaction (Verified 08/26/20 08:24) Itching POLLEN Allergy (Uncoded 08/26/20 08:24) Shortness of breath Primary Care Physician: Care Physician,No Primary [Primary Care Provider] - Smoking Status: Current every day smoker Review of Systems General: Denies: Chills, Fever, Malaise, Sweats Eyes: Denies: Visual changes - bilaterally, Diplopia ENT: Reports: - - No loss of taste/smell. Denies: Rhinorrhea, Sore throat Cardiovascular: Reports: Chest pain. Denies: Palpitations Respiratory: Reports: Dyspnea. Denies: Cough, Dyspnea on exertion Gastrointestinal: Denies: Abdominal pain, Nausea, Vomiting, Diarrhea, Melena, Hematochezia Genitourinary: Denies: Dysuria, Hematuria, Frequency Musculoskeletal: Denies: Myalgias, Back pain, Extremity Pain Skin: Denies: Rash, Wounds Neurological: Denies: Headache, Weakness, Numbness Physical Exam Vital Signs/Narrative: Vital Signs Temp Pulse Resp BP Pulse Ox 08/26/20 08:24 96.8 F L 99 20 H 161/123 H 96 Inital Vital Signs reviewed: Yes General: Well nourished, Well developed, No Acute Distress Head: Normocephalic, Atraumatic Eyes: Perrl, EOMI ENT: Moist mucous membranes, No rhinorrhea Neck: Supple, Nontender Cardiovascular: Regular rate, Regular rhythm, No murmurs Respiratory: No distress, Chest nontender, Wheezing. Negative for: Rales, Rhonchi Abdomen: Soft, Nontender, Nondistended, Normal bowel sounds Extremities: Nontender, No edema Skin: Normal color, No rash Neurological: Alert, Oriented x3, Cranial nerves II-XII grossly intact, Normal Strength, Normal Sensation, Normal Gait Psychological: Normal affect, Normal Mood Diagnostic/Tx/Re-eval Treatment - Dyspnea: Albuterol, Atrovent Repeat Evaluation: Improved - Medical Decision Making Patient does not want a chest x-ray or other testing. He less likely has coronavirus, we discussed signs and symptoms to return and he is comfortable with this plan. Given a prescription for albuterol inhaler. Also given a wait and see prescription for prednisone short burst. ED Disposition - Plan for ED Patient: Disposition: Home or Assisted Living Diagnosis: Acute asthma exacerbation Instructions: ED Asthma, Acute (Adult), ED Inhaler Use Prescriptions: Prednisone [Deltasone] 40 mg PO DAILY #10 tab Transmission Status: Pending to [facility] Albuterol Inhaler [Ventolin Hfa] 1 - 2 puff INHALATION Q4H PRN PRN #1 inhaler PRN Reason: Wheezing Transmission Status: Pending to [facility] Referrals: Annabel Quiroz [NON-STAFF] - As Needed Additional Instructions: If you are needing to use your albuterol inhaler more than several times per day for the next 2 days, fill and take the prednisone as prescribed, and finish it.
[2020-08-26 08:54] VITALS: O2SAT 95
[2020-08-26] MEDS: Ipratropium/Albuterol Sulfate 3 ML AMPUL.NEB INHALATION (08:56)
[2020-08-26 08:57] VITALS: PULSE 73; RESP 16
== END 2020-08-26 09:21 | disposition home or self-care (01) ==
LOC: ED 08:52
PROVIDERS: Emergency Provider Emergency Medicine
DX: J45.901 Unspecified asthma with (acute) exacerbation (principal); I10 Essential (primary) hypertension; G47.30 Sleep apnea, unspecified; F17.200 Nicotine dependence, unspecified, uncomplicated; Z88.5 Allergy status to narcotic agent
CPT/HCPCS: 94640; 99282

== ENCOUNTER 2023-08-25 02:39 | Emergency (ER) | payer MEDICAID, SELFPAY ==
[2023-08-25 02:39] VITALS: BP 169/99; PULSE 83; RESP 18; TEMP 36.7; O2SAT 98; BMI 40.2
--- NOTE | 2023-08-25 02:52 | EDS_ITS ---
HPI History of Present Illness Chief Complaint: Dental Detail of Chief Complaint: Left upper molar dental pain Informant: patient Onset/Context/Timing Onset: Days Context: Gradual Onset Timing: Continuous Current Severity: Moderate Maximum Severity: Moderate Associated Symptoms Assocated Symptom - Dental: cold sensitivity and hot sensitivity; Negative for fever, jaw swelling or face swelling Narrative Narrative: 43-year-old male history of hypertension, asthma, sleep apnea and methamphetamine abuse. Complaining of left upper dental pain last several days. Mild swelling. No fever. No difficulty swallowing. Started on amoxicillin that was someone else's medication yesterday. Prior similar symptoms: Yes Recent Illness/Hospitalization: No PFSH PFSH Home Medications albuterol sulfate 90 mcg/actuation aerosol inhaler 1 - 2 puff inhalation Q4H PRN PRN Wheezing ##1 08/26/20 [Rx Last Taken Unknown] prednisone 20 mg tablet 40 mg (2 x 20 mg) PO DAILY #10 tabs 08/26/20 [Rx Last Taken Unknown] penicillin V potassium 500 mg tablet 500 mg PO 4X/DAY #40 tabs 08/25/23 [Rx Last Taken Unknown] Allergy/AdvReac Type Severity Reaction Status Date / Time pollen extracts [pollens] Allergy Shortness Verified 08/25/23 02:40 of breath hydrocodone [From Vicodin] AdvReac Itching Verified 08/25/23 02:40 Social History Smoking Status: Current every day smoker tobacco type: cigarettes ROS ROS ED ROS Narrative Denies recent illness. Review of Systems ROS Unobtainable: Denies due to encephalopathy Constitutional Constitutional ED: Denies chills or fever(s) Eyes Eyes: Denies blurry vision ENT ENT ED: Denies ear pain Cardiovascular Cardiovascular: Denies chest pain Respiratory/Chest Respiratory/Chest: Denies cough or dyspnea Gastrointestinal Gastrointestinal: Denies abdominal pain Genitourinary Genitourinary ED: Denies dysuria or hematuria Musculoskeletal Musculoskeletal: Denies arthralgias, back pain or myalgias Integumentary Denies abscess or Abrasions Neurologic Neurologic: Denies headache(s) Psychiatric Psychiatric: Denies anxiety Endocrine Endocrinology: Denies cold intolerance Hematologic/Lymphatic Hematologic/Lymphatic: Denies easy bleeding, easy bruising or lymphadenopathy Allergic/Immunologic Allergic/Immunologic ED: Denies mouth swelling or tongue swelling EXAM Physical Exam Narrative Exam Narrative: Well-appearing 43-year-old male. Vital signs are stable afebrile. H EENT exam there is no significant swelling to the outside of his mouth or face. Abdomen closes jaw. He has multiple missing teeth. His left upper last molar has a cavity. He is tender to palpation. There is minimal gum swelling. No drainable abscess. No trismus. Posterior pharynx unremarkable. Neck nontender no lymphadenopathy. Lungs clear to auscultation bilaterally. Heart regular rhythm no murmur. Abdomen soft nontender. Moving all 4 extremities. Otherwise exam unremarkable. Const Vital Signs: 08/25/23 02:39 Temperature 98.1 F Temperature Source Temporal Pulse Rate 83 Respiratory Rate 18 Blood Pressure 169/99 H Blood Pressure Mean 122 Pulse Ox 98 Oxygen Delivery Method Room Air Positive well nourished and well developed; Negative for cachectic, contractures or unkempt General Appearance ED: well developed and NAD; Negative for unkempt, cachectic, contractures or pallor Nutritional Appearance: Negative for cachectic HEENT HEENT Narrative: Left upper last molar tenderness. tenderness; Negative for trauma Face and Sinus: Negative for sinuses nontender Mouth ED: Yes lips normal, Yes tongue normal, Yes salivary gland normal, No mouth trauma and No salivary gland abnormal Mouth: lips normal, tongue normal, salivary gland normal, No mouth trauma and No salivary gland abnormal Teeth and Gingiva: abnormal tooth and associated gingiva Throat: posterior oropharynx normal Eyes PERRL and EOMs intact bilaterally General Eye ED: Negative for pale conjunctiva or scleral icterus Neck no lymphadenopathy, supple and no JVD General: normal visual inspection; Negative for anterior neck swelling, tenderness or submandibular swelling Lymph Lymphatic: no lymphadenopathy noted; Negative for lymphadenopathy Chest Wall inspection of chest normal and palpation of chest normal Chest: Negative for other Resp normal respiratory effort, no retractions and clear to auscultation bilaterally Effort and Inspection: Negative for other Cardio regular rate, regular rhythm, S1 normal heart sound, S2 normal heart sound and no murmurs Jugular Venous Distention: Negative for other Palpation: Negative for palpable S3 or palpable S4 Rate: Negative for bradycardia or tachycardic Rhythm: Negative for abnormal rhythm GI normal to inspection, nondistended, normoactive bowel sounds, non-tender, non- distended and no masses Inspection: Negative for other Palpation: soft Back/Spine no CVA tenderness General Back: Negative for CVA tenderness Cervical Spine: Negative for other Extremity normal to inspection and no joint enlargement General Extremety ED: Negative for edema or other findings General Extremity: Negative for edema or other findings Neuro oriented x3, CN's II-XII intact bilaterally, moves all extremities and no focal motor deficits Sensorium / Orientation: alert, oriented to person, oriented to place and oriented to time; Negative for orientation impaired Motor Exam: strength 5/5 throughout Psych mental status grossly normal Appearance: Negative for unkempt Attitude: No agitated Mood & Affect: Negative for depressed, anxious or tearful Skin no rashes or lesions noted and no wounds General Skin Exam: Negative for pallor Image ED - URI/Dental Diagram: 1. Left upper last molar dental pain with cavity. Minimal swelling gum. No abscess. No trismus. MDM MDM MDM Narrative Medical decision making narrative: Patient has a left upper last molar cavity may or may not have an infection. Be given a dose of penicillin here and Motrin. Discharged home on penicillin 500 4 times daily for 10 days. Motrin Tylenol for pain. Follow-up with a dentist soon as possible. Discharge Plan Triage Chief Complaint: Dental ED Provider: Marty Vogel Dx/Rx/DC Orders Clinical Impression: Dental cavity, Pain, dental, History of hypertension Instructions: ED Dental Pain, ED Dental Cavity Prescriptions: New penicillin V potassium 500 mg tablet 500 mg PO 4X/DAY Qty: 40 0RF No Action prednisone 20 MG tablet 40 mg PO DAILY Qty: 10 0RF Rx Instructions: With food albuterol sulfate 1 INHALER inhaler 1 - 2 puff INHALATION Q4H PRN PRN (Reason: Wheezing) Qty: 1 0RF Primary Care Provider: Care Physician,No Primary Referrals: Annabel Quiroz [Non-Staff] - As soon as possible Care Physician,No Primary [Primary Care Provider] - Activity Restrictions/Additional Instructions: Motrin 600 mg 3 times a day. Tylenol 1 g 3-4 times a day for pain. Ice to your jaw. Penicillin 1 pill 4 times a day for 10 days. Call and follow-up with a dentist to soon as possible. Disposition Disposition: Home, Self Care
[2023-08-25] MEDS: Ibuprofen 400 MG Tablet 800 MG PO (02:55)
[2023-08-25] MEDS: Penicillin Vk 250 MG Tablet 500 MG PO (02:55)
--- OUTSIDE RECORDS SUMMARY | 2023-08-25 02:55 | XMS RPT_ITS | CCD ---
Author Name Unknown Address [address] [place] [address] Organization [facility] Care Team Providers Care Sport Psychologist Name Role Phone Kasi Mtz Unavailable Unavailable Wayt, Marcell Unavailable Unavailable Wayt, Marcell Unavailable Unavailable PROVIDER, UNKNOWN Unavailable Unavailable Wayt, Marcell Unavailable Unavailable Wayt, Marcell Unavailable Unavailable Wayt, Marcell Unavailable Unavailable Wayt, Marcell Unavailable Unavailable Viviane, Scottie Unavailable Unavailable Kia Murray Primary Care Provider Unavailable Primary Care Provider Kia Amaral APRN, CNP Primary Care Prov ider PHYSICIAN, NONE Primary Care Unavailable REY INIGUEZ Attending Unavaila ble Allergies Allergy Classification Reported Allergen(s) Allergy Type Date of Onset Reaction(s) Facility (4 sources) Acetaminophen / HYDROcodone Drug Allergy 7 Nausea Only [place], [place] (3 sources) Morphine And Related Propensity to adverse reactions to drug 9 [place] Medications Current Medications Medication Drug Class(es) Dates Sig (Normalized) Sig (Original) albuterol 5 mg/ml inhalation solution (8 sources) beta2-Adrenergic Agonist Start: 05-20-2017 albuterol (PROVENTIL) (5 MG/ML) 0.5% nebulizer solution Take 0.5 mLs by nebulization every 6 hours as needed for Wheezing 120 each 0 05/20/2017 Active Problems Active Problems Problem Classification Problem Date Documented Da te Episodic/Chronic Asthma (2 sources) Unspecified asthma, uncomplicated; Translations: [Unspecified asthma, uncomplicated] Onset: 05-27-2017 Chronic Essential hypertension (2 sources) Essential (primary) hypertension; Translations: [Essential (primary) hypertension] Onset: 05-27-2017 Chronic Substance-related disorders (2 sources) Nicotine dependence, cigarettes, uncomplicated; Translations: [Nicotine dependence, cigarettes, uncomplicated] Onset: 05-27-2017 Chronic Unclassified (2 sources) Sleep apnea, unspecified; Translations: [Sleep apnea, unspecified] Onset: 05-27-2017 Past or Other Problems Problem Classification Problem Date Documented Da te Episodic/Chronic Allergic reactions (4 sources) Allergy status to narcotic agent status; Translations: [Allergy status to analgesic agent status] Onset: 05-20-2017 Episodic Chronic obstructive pulmonary disease and bronchiectasis (2 sources) Bronchitis, not specified as acute or chronic; Translations: [Bronchitis, not specified as acute or chronic] Onset: 05-27-2017 Episodic Disorders of teeth and jaw (4 sources) Dental caries; Translations: [Toothache] Episodic Other lower respiratory disease (2 sources) Cough; Translations: [Cough] Onset: 05-20-2017 Episodic Other upper respiratory disease (2 sources) Nasal congestion; Translations: [Nasal congestion] Onset: 05-20-2017 Episodic Other upper respiratory infections (5 sources) Acute pharyngitis, unspecified; Translations: [Acute sinusitis, unspecified] Onset: 05-20-2017 Episodic Otitis media and related conditions (2 sources) Acute serous otitis media, bilateral; Translations: [Acute serous otitis media, bilateral] Onset: 05-20-2017 Episodic Superficial injury; contusion (2 sources) Contusion of left front wall of thorax, initial encounter; Translations: [Contusion of left front wall of thorax, initial encounter] Onset: 03-11-2017 Episodic Viral infection (2 sources) Other viral agents as the cause of diseases classified elsewhere; Translations: [Oth viral agents as the cause of diseases classd elswhr] Onset: 03-11-2017 Episodic Results Test Name Value Interpretation Reference Range Facil ity Vital Signs Date Time Vital Sign Value Performing Clinician Aldair tobar 04-22-2019 10:38-0400 BMI (Body Mass Index) 39.75 kg/m[facility] [place] [facility] 10:38-0400 Body Temperature 97.9 [degF] [place], [place] 04-22-2019 10:38-0400 Body weight 129.28 kg [place], [place] 04-22-2019 10:38-0400 BP Diastolic 110 mm[Hg] [place] 04-22-2019 10:38-0400 BP Systolic 163 mm[Hg] [place], [place] 04-22-2019 10:38-0400 Height 180.3 cm [place] 04-22-2019 10:38-0400 Pulse (Heart Rate) 85 /min [place] 04-22-2019 10:38-0400 Pulse Oximetry 98 % [place] 04-22-2019 10:38-0400 Respiratory Rate 18 /min [place] 04-16-2019 10:59-0400 Body Temperature 98.71 [degF] [facility] [place] 04-16-2019 10:59-0400 BP Diastolic 108 mm[Hg] [place], [place] 04-16-2019 10:59-0400 BP Systolic 158 mm[Hg] [place], [place] 04-16-2019 10:59-0400 Pulse (Heart Rate) 94 /min [place] 04-16-2019 10:59-0400 Pulse Oximetry 95 % [place] 04-16-2019 10:59-0400 Respiratory Rate 20 /min [place] 04-16-2019 10:40-0400 BMI (Body Mass Index) 39.05 kg/m2 [place] 04-16-2019 10:40-0400 Body weight 127.01 kg [place] 04-16-2019 10:40-0400 Height 180.3 cm [place] Encounters Encounter Date Encounter Type Care Provider Facility Start: 01-23-2023 End: 01-23-2023 ambulatory NONE PHYSICIAN Facility:A Start: 09-08-2019 End: 09-09-2019 Subsequent hospital visit by physician Kia Andrade CNP Work Phone: [facility] Start: 06-03-2019 End: 06-03-2019 Subsequent hospital visit by physician [facility]ia [facility] Start: 04-22-2019 End: 04-22-2019 Emergency department patient visit [facility] Emergency Dept Plan of Treatment Date Care Activity Detail Author Start: 04-27-2019 Influenza vaccination Flu vaccine (# 1) [place], [place] Start: 1980 Creatinine monitoring Creatinine mon itoring [place] Start: 1980 Potassium monitoring Potassium monit oring [place] Payers Date Payer Category Payer Medicaid [id number] 2019 Unknown [facility] MEDICAID xxxxxxxxxxx 2019-Present [phone] CLAIMS DEPARTMENT [address] [place] [address] xxxxxxxxxxx [id number] 1980 Unknown [id number] Unknown Social History Date Type Detail Facility Start: [facility]-22-[facility] [place] History of tobacco use Cigarette Smoker [place] Sex Assigned At Not on file [place] Start: 04-16-2019 Tobacco smoking stat [facility] Current every day smoker [place] Progress note 12-27-2020 Note Date & Type Note Facility 12-27-2020 Note HNO ID: [id number] Author: Simeon Arnold LPN Service: ? Author Type: ? Type: Progress Notes Filed: 12/27/2020 5:14 PM Note Text: PCP updated. Simeon Arnold LPN [facility] Progress note 12-27-2020 Note Date & Type Note Facility 12-27-2020 Note HNO ID: [id number] Author: Miki Recinos PA-C Service: ? Author Type: Physician Yarn Dry Room Worker Type: Progress Notes Filed: 12/27/2020 5:14 PM Note Text: Yes. Thanks, Iraj Recinos PA-C [facility] Progress note 12-27-2020 Note Date & Type Note Facility 12-27-2020 Note HNO ID: [id number] Author: Simeon Arnold LPN Service: ? Author Type: ? Type: Progress Notes Filed: 12/27/2020 5:14 PM Note Text: POPULATION HEALTH NAVIGATION OUTREACH Action/I ROBIN 12/30/18. Pt saw PCP 1x. No contact with office since. Meds have not been refilled since ROBIN. 2 attempt's to contact pt without response. Ok to remove PCP? Contact made with patient or family member? NO Pt identified by name and : NO Health Maintenance items due: SPIROMETRY Never done HEPATITIS C SCREENING Never done HIV SCREENING Never done BP CONTROLLED (<130/80) Never done DTAP,TDAP,TD(1 - Tdap) Never done ONE PNEUMOVAX PRIOR TO AGE 65 Never done DEPRESSION SCREENING due on 12/21/2018 ANNUAL PCP TEAM CHRONIC DISEASE VISIT due on 12/31/2019 Message Sent to Practice: YES Navigation Signature: Simeon Arnold LPN December 27, 2020 1:37 PM [facility] Clinical Note 12-27-2020 Note Date & Type Note Facility 12-27-2020 Note Patient Outreach (FA MPWS) KELECHI HAYES ([id number]) 1980 M [facility] Date Time Provider Department 12/27/20 SIMEON ARNOLD) JAMARI During your visit today, we recorded the following information about you: Simeon Arnold LPN 12/27/2020 5:14 PM Signed POPULATION HEALTH NAVIGATION OUTREACH Action/I [facility] 12/30/18. Pt saw PCP 1x. No contact with office since. Meds have not been refilled since ROBIN. 2 attempt's to contact pt without response. Ok to remove PCP? Contact made with patient or family member? NO Pt identified by name and : NO Health Maintenance items due: SPIROMETRY Never done HEPATITIS C SCREENING Never done HIV SCREENING Never done BP CONTROLLED (<130/80) Never done DTAP,TDAP,TD(1 - Tdap) Never done ONE PNEUMOVAX PRIOR TO AGE 67 Never done DEPRESSION SCREENING due on 12/21/2018 ANNUAL PCP TEAM CHRONIC DISEASE VISIT due on 12/31/2019 Message Sent to Practice: YES Navigation Signature: Simeon Arnold LPN December 27, 2020 1:37 PM Miki Recinos PA-C 12/27/2020 5:14 PM Signed Yes. ThanksIraj PA-C Jamie Mowrer LPN 12/27/2020 5:14 PM Signed PCP updated. Simeon Arnold LPN Allergies As of Date: 12/27/2020 Noted Allergy Reaction HYDROCODONE-ACETAMINOPHEN 01/16/2017 16 - Unknown POLLEN EXTRACTS 12/30/2018 9 - Itching Date Reviewed: 05/04/2019 Reviewed by: Dax (Rn) SHABBIR Persaud - Fully Assessed Reason for Visit: [facility]/Care Gap Outreach [4189] Visit Diagnosis:Noncompliance [Z91.19] Prescriptions as of 12/27/2020 Sig: ALBUTEROL SULFATE HFA 90 MCG/* Inhale 2 Puffs as instructed * IBUPROFEN 800 MG TABLET Take 1 tablet by mouth every * MOMETASONE-FORMOTEROL HFA 200* Inhale 2 Puffs as instructed * LISINOPRIL 20 MG TABLET Take 1 tablet by mouth once d* AMLODIPINE 5 MG TABLET Take 1 tablet by mouth once d* CLOTRIMAZOLE-BETAMETHASONE 1 * Apply 1 application to affect* LISINOPRIL 20 MG TABLET Take 1 tablet by mouth once d* AMLODIPINE 5 MG TABLET Take 1 tablet by mouth once d* LORATADINE 10 MG TABLET TAKE 1 TABLET BY MOUTH EVERY * DOXYCYCLINE MONOHYDRATE 100 M* Take 1 tablet by mouth twice * Patient not taking: Reported on 12/29/2018 BENZONATATE 100 MG CAPSULE Take 2 capsules by mouth thre* Patient not taking: Reported on 12/29/2018 Problem List As Of Date 12/27/2020 Noted Resolved Allergic rhinitis due to allergen [J30.9] 05/16/2015 Elevated LFTs [R79.89] 05/16/2015 Essential hypertension [I10] 05/16/2015 Other and unspecified alcohol dependence, unspe*05/16/2015 Anxiety, generalized [F41.1] 05/16/2015 Pain in toe of left foot [M79.675] 05/16/2015 Asthma [J45.909] 05/16/2015 Obesity, Class III, BMI 40-49.9 (morbid obesity*11/28/2017 Elevated glucose [R73.09] 12/24/2017 Encounter Status:Closed by SIMEON ARNOLD LPN on 12/27/20 [facility] Progress note 12-09-2020 Note Date & Type Note Facility 12-09-2020 Note HNO ID: [id number] Author: Erum Hooks MA Service: ? Author Type: Industrial Maintenance Technician Type: Progress Notes Filed: 12/09/2020 2:26 PM Note Text: Care Gap Reviewed: Follow-up appointment Phone call placed to patient. Pt identified by name and : NO Outreach Outcome/Action: Unable to reach patient: Phone number not valid / voicemail full If patient deferred or declined to schedule appointment, please indicate the reason(s): Other Wrong phone number. Erum Hooks [facility] Clinical Note 12-09-2020 Note Date & Type Note Facility 12-09-2020 Note Patient Outreach (FA MPWS) KELECHI HAYES ([id number]) 1980 M [facility] Date Time Provider Department 12/09/20 ERUM HOOKS During your visit today, we recorded the following information about you: Erum Hooks MA 12/09/2020 2:26 PM Signed Care Gap Reviewed: Follow-up appointment Phone call placed to patient. Pt identified by name and : NO Outreach Outcome/Action: Unable to reach patient: Phone number not valid / voicemail full If patient deferred or declined to schedule appointment, please indicate the reason(s): Other Wrong phone number. Erum Hooks Allergies As of Date: 12/09/2020 Noted Allergy Reaction HYDROCODONE-ACETAMINOPHEN 01/16/2017 16 - Unknown POLLEN EXTRACTS 12/30/2018 9 - Itching Date Reviewed: 05/04/2019 Reviewed by: Dax (Rn) SHABBIR Persaud - Fully Assessed Reason for Visit: Appointment [186] Cmt: HTN Prescriptions as of 12/09/2020 Sig: ALBUTEROL SULFATE HFA 90 MCG/* Inhale 2 Puffs as instructed * IBUPROFEN 800 MG TABLET Take 1 tablet by mouth every * MOMETASONE-FORMOTEROL HFA 200* Inhale 2 Puffs as instructed * LISINOPRIL 20 MG TABLET Take 1 tablet by mouth once d* AMLODIPINE 5 MG TABLET Take 1 tablet by mouth once d* CLOTRIMAZOLE-BETAMETHASONE 1 * Apply 1 application to affect* LISINOPRIL 20 MG TABLET Take 1 tablet by mouth once d* AMLODIPINE 5 MG TABLET Take 1 tablet by mouth once d* LORATADINE 10 MG TABLET TAKE 1 TABLET BY MOUTH EVERY * DOXYCYCLINE MONOHYDRATE 100 M* Take 1 tablet by mouth twice * Patient not taking: Reported on 12/29/2018 BENZONATATE 100 MG CAPSULE Take 2 capsules by mouth thre* Patient not taking: Reported on 12/29/2018 Problem List As Of Date 12/09/2020 Noted Resolved Allergic rhinitis due to allergen [J30.9] 05/16/2015 Elevated LFTs [R79.89] 05/16/2015 Essential hypertension [I10] 05/16/2015 Other and unspecified alcohol dependence, unspe*05/16/2015 Anxiety, generalized [F41.1] 05/16/2015 Pain in toe of left foot [M79.675] 05/16/2015 Asthma [J45.909] 05/16/2015 Obesity, Class III, BMI 40-49.9 (morbid obesity*11/28/2017 Elevated glucose [R73.09] 12/24/2017 Encounter Status:Closed by ERUM HOOKS MA on 12/09/20 [facility] Summary Purpose Family History No Family History Records FoundNo Family History Records FoundNo Family History Records FoundNo Family History Records FoundNo Family History Records Found Advance Directives No Advanced Directives Records FoundNo Advanced Directives Records FoundNo Advanced Directives Records FoundNo Advanced Directives Records FoundNo Advanced Directives Records Found Discharge Instructions * Attachments The following attachments cannot be sent through Care Everywhere. * Tooth: Abscessed (Chadian) * Tooth Decay (Chadian) * Tooth and Gum Pain (Chadian) * Periodontal Conditions (Chadian) documented in this encounter* Attachments The following attachments cannot be sent through Care Everywhere. * Sinusitis (Chadian) documented in this encounter Assessments Diagnosis Dental caries- Primary Unspecified dental caries Pain, dental Unspecified disorder of the teeth and supporting structures Dental infection Acute apical periodontitis of pulpal origin Diagnosis Dental caries- Primary Unspecified dental caries Acute maxillary sinusitis, recurrence not specified Reason for Referral Status Reason Specialty Diagnoses / Procedures Referred By Contact Referred To Contact Open Specialty Services Required Dentistry Diagnoses Dental caries Acute maxillary sinusitis, recurrence not specified Jesus Park, SEO ASSOCIATE - ELECTRICAL PANEL BUILDER [address] [place] [address] Parvin Abrams DDS [address] [place] [address] Scheduling Instructions [facility] [address] [place], [place] [id number] Additional Source Comments (unrecognized sect ion and content) No Status Records FoundNo Status Records FoundNo Status Records FoundNo Status Records FoundNo Status Records Found INFORMATION SOURCE (unrecogn ized section and content) DATE CREATED AUTHOR AUTHOR'S ORGANIZ ATION 05/04/2019 [facility] DATE CREATED AUTHOR AUTHOR'S ORGANIZ ATION 05/04/2019 [facility] DATE CREATED AUTHOR AUTHOR'S ORGANIZ ATION 10/20/2021 [facility] DATE CREATED AUTHOR AUTHOR'S ORGANIZ ATION 02/04/2023 [facility] ([place]) Reason for Visit (unrecogniz ed section and content) Reason Comments Dental Pain FOR RECORDS PERTAINING TO PATIENTS WHO ARE OR HAVE BEEN ENROLLED IN A CHEMICAL DEPENDENCY/SUBSTANCEABUSE PROGRAM, SOME INFORMATION MAY BE OMITTED. This clinical summary was aggregated from multiple sources. Caution should be exercised in using it in the provision of clinical care. This summary normalizes information from multiple sources, and as a consequence, information in this document may materially change the coding, format and clinical context of patient data. In addition, data may be omitted in some cases. CLINICAL DECISIONS SHOULD BE BASED ON THE PRIMARY CLINICAL RECORDS. [facility]. provides no warranty or guarantee of the accuracy or completeness of information in this document.
[2023-08-25 02:57] VITALS: PULSE 81; RESP 17; O2SAT 97
== END 2023-08-25 03:00 | disposition home or self-care (01) ==
LOC: ED 02:53
PROVIDERS: Emergency Provider Emergency Medicine; Visit Provider Emergency Medicine
DX: K08.89 Other specified disorders of teeth and supporting structures (principal); K02.9 Dental caries, unspecified; F17.210 Nicotine dependence, cigarettes, uncomplicated; I10 Essential (primary) hypertension
CPT/HCPCS: 99283

== ENCOUNTER 2023-08-26 23:53 | Emergency (ER) | payer MEDICAID, SELFPAY ==
[2023-08-26 23:54] VITALS: BP 211/126; PULSE 97; RESP 15; TEMP 36.2; O2SAT 95
--- OUTSIDE RECORDS SUMMARY | 2023-08-27 00:14 | XMS RPT_ITS | CCD ---
Author Name Unknown Address [address] [place] [address] Organization [facility] Care Team Providers Care Production Support Engineer Name Role Phone Kasi Mtz Unavailable Unavailable [...] / HYDROcodone Drug Allergy 7 Nausea Only [place], [place] (3 sources) Morphine And Related Propensity to adverse reactions to drug 9 [place] Medications Current Medications Medication Drug Class(es) [...] 10:38-0400 BMI (Body Mass Index) 39.75 kg/m2 [facility] [place] 04-22-2019 10:38-0400 Body Temperature 97.9 [degF] [place], [place] 04-22-2019 10:38-0400 Body weight 129.28 kg [place], [place] 04-22-2019 10:38-0400 BP Diastolic 110 mm[Hg] [place] 04-22-2019 10:38-0400 BP Systolic 163 mm[Hg] [place] 04-22-2019 10:38-0400 Height 180.3 cm [place] 04-22-2019 10:38-0400 Pulse (Heart Rate) 85 /min [place] 04-22-2019 10:38-0400 Pulse Oximetry 98 % [place] 04-22-2019 10:38-0400 Respiratory Rate 18 /min [place], [place] 04-16-2019 10:59-0400 Body Temperature 98.71 [degF] [facility] [place] 04-16-2019 10:59-0400 BP Diastolic 108 mm[Hg] [place], [place] 04-16-2019 10:59-0400 BP Systolic 158 mm[Hg] [place] 04-16-2019 10:59-0400 Pulse (Heart Rate) 94 /min [place] 04-16-2019 10:59-0400 Pulse Oximetry 95 % [place], [place] 04-16-2019 10:59-0400 Respiratory Rate 20 /min [place], [place] 04-16-2019 10:40-0400 BMI (Body Mass Index) 39.05 kg/m2 [place], [place] 04-16-2019 10:40-0400 Body weight 127.01 kg [place], [place] 04-16-2019 10:40-0400 Height 180.3 cm [place] Encounters Encounter Date Encounter Type Care Provider Facility Start: 01-23-2023 End: 01-23-2023 ambulatory NONE PHYSICIAN Facility:A Start: 09-08-2019 End: 09-09-2019 Subsequent hospital visit by physician Kia Andrade CNP Work Phone: [facility] Start: 06-03-2019 End: 06-03-2019 Subsequent [facility] Start: 04-22-2019 End: 04-22-2019 Emergency department patient visit [facility] Emergency Dept Plan of Treatment Date Care Activity Detail Author Start: 04-27-2019 Influenza vaccination Flu vaccine (# 1) [place], [place] Start: 1980 Creatinine monitoring Creatinine mon itoring [place] Start: 1980 Potassium monitoring Potassium monit oring [place] Payers Date Payer Category Payer Medicaid [id number] 2019 Unknown [facility] MEDICAID xxxxxxxxxxx 2019-Present [phone] CLAIMS DEPARTMENT [address] [place] [address] xxxxxxxxxxx [id number] 1980 Unknown [id number] Unknown Social History Date Type Detail Facility Start: [facility]-22-2019 [facility] [place] History of tobacco use Cigarette Smoker [place] Sex Assigned At Not on file [place] Start: 04-16-2019 Tobacco smoking stat [facility] Current every day smoker [place] Progress note 12-27-2020 Note Date & Type Note Facility 12-27-2020 Note HNO ID: [id number] Author: Simeon Arnold LPN Service: ? Author Type: ? Type: Progress Notes Filed: 12/27/2020 5:14 PM Note Text: PCP updated. Simeon Arnold LPN [facility] Progress note 12-27-2020 Note Date & Type Note Facility 12-27-2020 Note HNO ID: [id number] Author: Miki Recinos PA-C Service: ? Author Type: Physician Dishwasher Preparer Type: Progress Notes Filed: 12/27/2020 5:14 PM Note Text: Yes. Thanks, Iraj Recinos PA-C [facility] Progress note 12-27-2020 Note Date & Type Note Facility 12-27-2020 Note HNO ID: [id number] Author: Simeon Arnold LPN Service: ? Author [...] Arnold LPN December 27, 2020 1:37 PM [facility] Clinical Note 12-27-2020 Note Date & Type Note Facility 12-27-2020 Note Patient Outreach (FA MPWS) KELECHI HAYES ([id number]) 1980 M [facility] Date Time Provider Department 12/27/20 SIMEON ARNOLD) JMAARI During your visit today, we recorded the following information about you: Simeon Arnold LPN 12/27/2020 5:14 PM Signed POPULATION HEALTH NAVIGATION OUTREACH Action/I [facility] 12/30/18. Pt saw PCP 1x. No contact [...] Persaud - Fully Assessed Reason for Visit: [facility]/Care Gap Outreach [8044] Visit Diagnosis:Noncompliance [Z91.19] Prescriptions as of 12/27/2020 [...] Status:Closed by SIMEON ARNOLD LPN on 12/27/20 [facility] Progress note 12-09-2020 Note Date & Type Note Facility 12-09-2020 Note HNO ID: [id number] Author: Erum Hooks MA Service: ? Author Type: Pipe Processor Type: Progress Notes Filed: 12/09/2020 2:26 PM Note Text: Care Gap Reviewed: Follow-up appointment Phone call placed to patient. Pt identified by name and : NO Outreach Outcome/Action: Unable to reach patient: Phone number not valid / voicemail full If patient deferred or declined to schedule appointment, please indicate the reason(s): Other Wrong phone number. Erum Hooks [facility] Clinical Note 12-09-2020 Note Date & Type Note Facility 12-09-2020 Note Patient Outreach (FA MPWS) KELECHI HAYES ([id number]) 1980 M [facility] Date Time Provider Department 12/09/20 ERUM HOOKS [...] Status:Closed by ERUM HOOKS MA on 12/09/20 [facility] Summary Purpose Family History No Family [...] sent through Care Everywhere. * Tooth: Abscessed ([place] Islander) * Tooth Decay ([place] Island[place]) * Tooth and Gum Pain ([place] Islander) * Periodontal Conditions ([place] Islander) documented in this encounter* Attachments The following attachments cannot be sent through Care Everywhere. * Sinusitis ([place] Islander) documented in this encounter Assessments Diagnosis Dental [...] maxillary sinusitis, recurrence not specified Jesus Park, HISTOLOGY MANAGER - DAMPER WORKER [address] [place] [address] Parvin Abrams DDS [address] [place] [address] Scheduling Instructions [facility] [address] [place], [place] [id number] Additional Source Comments (unrecognized sect ion and content) No Status Records FoundNo Status Records FoundNo Status Records FoundNo Status Records FoundNo Status Records Found INFORMATION SOURCE (unrecogn ized section and content) DATE CREATED AUTHOR AUTHOR'S ORGANIZ ATION 05/04/2019 [facility] DATE CREATED AUTHOR AUTHOR'S ORGANIZ ATION 05/04/2019 [facility] DATE CREATED AUTHOR AUTHOR'S ORGANIZ ATION 10/20/2021 [facility] DATE CREATED AUTHOR AUTHOR'S ORGANIZ ATION 02/04/2023 [facility] ([place]) Reason for Visit (unrecogniz ed [...] BE BASED ON THE PRIMARY CLINICAL RECORDS. [email or web address]. provides no warranty or guarantee of the accuracy or completeness of information in this document.
[2023-08-27 01:12] VITALS: BMI 39.9
--- NOTE | 2023-08-27 01:12 | CT_ITS ---
INDICATION: abscess, left-sided tooth pain and swelling EXAMINATION: CT NECK WITH CONTRAST TECHNIQUE: Helically acquired images were obtained of the neck following IV contrast. 2-D reconstructions reviewed. A radiation dose optimization technique was used for this scan. IV Contrast dosage and agent: 100 cc [id number] COMPARISON: None. FINDINGS: SOFT TISSUES: Mild left buccal soft tissue swelling but no discrete mass or rim-enhancing abscess demonstrated. Left nasal metallic piercing present. NASOPHARYNX: Unremarkable. SUPRAHYOID NECK: Unremarkable oropharynx, oral cavity, parapharyngeal space, and retropharyngeal space. INFRAHYOID NECK: Unremarkable larynx, hypopharynx, and supraglottis. THYROID: Unremarkable. SALIVARY GLANDS: Unremarkable. LYMPH NODES: No cervical or supraclavicular lymphadenopathy. VASCULAR STRUCTURES: Unremarkable. VISUALIZED PORTIONS OF THE ORBITS, PARANASAL SINUSES, MASTOID AIR CELLS AND SKULL BASE: Scattered sinus mucosal thickening, most prominent within left maxillary sinus. No sinus fluid levels demonstrated. Unremarkable orbits and globes. Mastoid air cells are well-pneumatized. BONES: No acute findings. Incomplete dentition. THORACIC INLET: Clear lung apices. CT/Soft Tissue Neck WITH Contrast IMPRESSION: 1. Left facial soft tissue swelling with no mass or abscess demonstrated. 2. Paranasal sinus inflammatory changes. Electronically Signed: Homar Way MD at 3:01 EST ,
[2023-08-27] MEDS: Piperacil/Tazobactam 3.375 GM in 0.9% Normal Saline (50mL MB+) 50 ML IV (01:42)
[2023-08-27] MEDS: 0.9% Normal Saline (1000mL) 1,000 ML 999 ML IV (01:42)
[2023-08-27] MEDS: Ondansetron 4 MG/2 ML Vial IV (01:42)
[2023-08-27] MEDS: Morphine 4 MG/ML Syringe IV (01:42)
[2023-08-27 02:35] LABS: Absolute Lymphocyte Count 2.78 X10^3/uL (0.83-4.51); Absolute Neutrophil Count 9.8 X10^3/uL (2.0-7.7); Basophil# 0.06 X10^3/uL; Basophil% 0.4 % (0-1); Eosinophil# 0.65 X10^3/uL; Eosinophils% 4.5 % (0-5); Hematocrit 43.7 % (40-54); Hemoglobin 13.9 g/dL (13.0-16.5); Lymphocyte # 2.78 X10^3/ul (0.83-4.51); Lymphocyte % 19.2 % (19-41); Mean Corp Hgb Conc 31.8 g/dL (32-36); Mean Corpuscular Hgb 28.7 pg (27.0-32.0); Mean Corpuscular Volume 90.3 fL (80-94); Mean Platelet Vol. 9.5 fl (6.2-12.0); Monocyte# 1.15 X10^3/uL; Monocyte% 7.9 % (0-10); NRBC Flagged by Analyzer 0 % (0-5); Neutrophil # 9.81 X10^3/uL (2.7-7.7); Neutrophil % 67.6 % (47-70); Platelet Count 331 K/mm3 (150-450); RBC Distribution Width CV 12.9 % (11.6-14.6); RBC Distribution Width SD 42.3 fl (35.1-43.9); Red Blood Count 4.84 M/mm3 (4.6-6.2); White Blood Count 14.5 K/mm3 (4.4-11.0)
[2023-08-27 02:47] LABS: Anion Gap 1 (5-15); BUN 16 mg/dL (7-18); BUN/Creat Ratio 20.3 RATIO (10-20); Calcium,Total 8.7 mg/dL (8.5-10.1); Chloride 106 mmol/L (98-107); Creatinine, Serum 0.79 mg/dL (0.70-1.30); EST Glomerular Filtration Rate 115 mL/min (>60); Est Glom Filt Rate - Afr Amer 140 mL/min (>60); Estimated Creatinine Clearance 127.06 ml/min; Glucose 110 mg/dL (74-106); Potassium 3.5 mmol/L (3.5-5.1); Sodium Level 137 mmol/L (136-145)
[2023-08-27 02:51] LABS: Lactic Acid 0.7 mmol/L (0.4-1.9)
[2023-08-27] MEDS: HYDROmorphone 0.5 MG/0.5 ML SYRINGE IV (03:09)
--- NOTE | 2023-08-27 03:19 | EX.ED.DYSGE1 ---
HPI History of Present Illness Chief Complaint: Dental Informant: patient and spouse/S.O. Narrative Narrative: Patient is a 43-year-old male with past medical history of hypertension asthma and sleep apnea. He states that he has had left lower dental pain for approximately 4 days. He denies any trauma prior to the pain beginning. He states that he was recently seen in the ER and placed on penicillin but despite taking this has had worsening of facial swelling and pain. He denies any difficulty breathing or swallowing or any fevers but with the increased swelling and pain he presents for reevaluation. [facility] Medical History (Updated 08/27/23 @ 03:[address] Norman Torres DO) Dental abscess Home Medications albuterol sulfate 90 mcg/actuation aerosol inhaler 1 - 2 puff inhalation Q4H PRN PRN Wheezing ##1 08/26/20 [Rx Last Taken Unknown] prednisone 20 mg tablet 40 mg (2 x 20 mg) PO DAILY #10 tabs 08/26/20 [Rx Last Taken Unknown] penicillin V potassium 500 mg tablet 500 mg PO 4X/DAY #40 tabs 08/25/23 [Rx Last Taken Unknown] albuterol sulfate 90 mcg/actuation aerosol inhaler (Ventolin HFA) 1 - 2 puff inhalation Q4H PRN PRN Wheezing/SOB #1 device 08/27/23 [Rx Last Taken Unknown] clindamycin HCl 300 mg capsule 300 mg PO 4X/DAY 10 days #40 caps 08/27/23 [Rx Last Taken Unknown] oxycodone-acetaminophen 5 mg-325 mg tablet (Percocet) 1 tab PO Q6H PRN pain 3 days #12 tabs 08/27/23 [Rx Last Taken Unknown] Allergy/AdvReac Type Severity Reaction Status Date / Time pollen extracts [pollens] Allergy Shortness Verified 08/26/23 23:57 of breath hydrocodone [From Vicodin] AdvReac Itching Verified 08/26/23 23:57 Social History Smoking Status: Current every day smoker tobacco type: cigarettes ROS ROS ED Constitutional Constitutional ED: Denies chills or fever(s) ENT ENT ED: Reports other Details: Positive dental pain and facial swelling ; Denies sore throat Cardiovascular Cardiovascular: Denies chest pain Respiratory/Chest Respiratory/Chest: Denies cough or dyspnea Gastrointestinal Gastrointestinal: Denies abdominal pain, diarrhea, nausea or vomiting Genitourinary Genitourinary ED: Denies dysuria Musculoskeletal Musculoskeletal: Denies myalgias or neck pain Integumentary Reports abscess; Denies rash Neurologic Neurologic: Denies headache(s) Hematologic/Lymphatic Hematologic/Lymphatic: Denies easy bleeding or easy bruising EXAM Physical Exam Const Vital Signs: 08/26/23 23:54 Temperature 97.1 F L Temperature Source Temporal Pulse Rate 97 Respiratory Rate 15 Blood Pressure 211/126 H Blood Pressure Mean 154 Pulse Ox 95 Oxygen Delivery Method Room Air Positive well nourished and well developed General Appearance ED: well developed HEENT HEENT Narrative: No tongue or lip swelling noted No airway edema or compromise Patient has dental caries present without obvious external dental abscess There is soft tissue swelling and induration of the submental space however concerning for abscess versus infected/enlarged salivary gland. No signs of ANUG Eyes PERRL and EOMs intact bilaterally General Eye ED: Negative for scleral icterus Neck supple Neck Narrative: Induration/soft tissue swelling in the submental space as documented above Resp normal respiratory effort and clear to auscultation bilaterally Cardio regular rate and regular rhythm Extremity normal to inspection Neuro oriented x3, CN's II-XII intact bilaterally and no sensory deficits noted Sensorium / Orientation: alert Motor Exam: strength 5/5 throughout Psych mental status grossly normal Skin Skin Narrative: Soft tissue swelling with induration in the submental space No overlying erythema or warmth however MDM MDM MDM Narrative Medical decision making narrative: Patient presented to the ER hypertensive but has a past medical history of this. Otherwise vital signs are stable. He is not in respiratory distress and does not need emergent intubation but he does have swelling in the submental space concerning for abscess versus developing Christiano's angina versus a salivary gland stone or infection. Secondary to this basic blood work was obtained as well as a CT scan of the soft tissue neck. The patient's white count is elevated at 14.5 otherwise her no clinically significant findings. The CT scan did not show any type of drainable fluid collection or airway compromise but did document the soft tissue swelling found on exam. This time as the patient does not have a drainable mass and there is no airway compromise and he is not showing changes for septicemia I do not feel there is need for admission to the hospital. As he has not had improvement on the penicillin we will change to clindamycin for this time without airway edema or compromise or drainable abscess on CT scan he can be discharged home and she will follow-up as an outpatient basis History & Record Review Discussion w/independent historian: Patient and Significant other Lab Data Attestation: I reviewed the patient's lab results. Labs: Laboratory Results - last 24 hr 08/27/23 08/27/23 08/27/23 01:50 01:50 02:20 WBC Cancelled 14.5 H Corrected WBC Cancelled RBC Cancelled 4.84 Hgb Cancelled 13.9 Hct Cancelled 43.7 MCV Cancelled 90.3 MCH Cancelled 28.7 MCHC Cancelled 31.8 L RDW Std Deviation Cancelled 42.3 RDW Coeff of [place] Cancelled 12.9 Plt Count Cancelled 331 MPV Cancelled 9.5 Immature Gran % (Auto) Cancelled 0.400 Neut % (Auto) Cancelled 67.6 Lymph % (Auto) Cancelled 19.2 [place] % (Auto) Cancelled 7.9 Eos % (Auto) Cancelled 4.5 Baso % (Auto) Cancelled 0.4 Absolute Neuts (auto) Cancelled 9.8 H Absolute Lymphs (auto) Cancelled 2.78 Total Counted Cancelled Neutrophils % (Manual) Cancelled Band Neutrophils % Cancelled Lymphocytes % (Manual) Cancelled Monocytes % (Manual) Cancelled Eosinophils % (Manual) Cancelled Basophils % (Manual) Cancelled Metamyelocytes % Cancelled Myelocytes % Cancelled Promyelocytes % Cancelled Blast Cells % Cancelled Plasma Cell % (Manual) Cancelled Other Cells % Cancelled Nucleated RBC % Cancelled 0 Nucleated RBCs/100 WBC Cancelled Differential Comment Cancelled Diff Path Review Cancelled Hypersegmented Neuts Cancelled Atypical Lymphocytes Cancelled Reactive Lymphocytes Cancelled Smudge Cells Cancelled Toxic Granulation Cancelled Toxic Vacuolation Cancelled Dohle Bodies Cancelled Gregory Rods Cancelled Platelet Estimate Cancelled Plt Morphology Comment Cancelled RBC Morphology Cancelled Cancelled Polychromasia Cancelled Hypochromasia Cancelled Poikilocytosis Cancelled Basophilic Stippling Cancelled Anisocytosis Cancelled Microcytosis Cancelled Macrocytosis Cancelled Spherocytes Cancelled Sickle Cells Cancelled Target Cells Cancelled Tear Drop Cells Cancelled Ovalocytes Cancelled Stomatocytes Cancelled [place] Bodies Cancelled [place] Cells Cancelled Bite Cells Cancelled Crenated Cell Cancelled Acanthocytes (Spur) Cancelled Rouleaux Cancelled Schistocytes Cancelled Sodium Cancelled 137 Potassium Cancelled 3.5 Chloride Cancelled 106 Carbon Dioxide Cancelled 30.0 Anion Gap Cancelled 1 L BUN Cancelled 16 Creatinine Cancelled 0.79 Estim Creat Clear Calc Cancelled 127.06 Est GFR (MDRD) Af Amer Cancelled 140 Est GFR (MDRD) Non-Af Cancelled 115 BUN/Creatinine Ratio Cancelled 20.3 H Glucose Cancelled 110 H Lactic Acid Cancelled 0.7 Calcium Cancelled 8.7 Radiography Diagnostic Testing: Clinical Impression(s) from Imaging Studies Soft Tissue Neck CT 08/27/23 01:12 IMPRESSION: 1. Left facial soft tissue swelling with no mass or abscess demonstrated. 2. Paranasal sinus inflammatory changes. Electronically Signed: Homar Way MD at 3:01 EST , Discharge Plan Triage Chief Complaint: Dental ED Provider: Norman Torres Dx/Rx/DC Orders Clinical Impression: Pain, dental, HTN (hypertension), Asthma Instructions: ED Dental Pain Prescriptions: New clindamycin HCl 300 mg capsule 300 mg PO 4X/DAY 10 Days Qty: 40 0RF oxycodone-acetaminophen [Percocet] 5-325 mg tablet 1 tab PO Q6H PRN (Reason: pain) 3 Days Qty: 12 0RF albuterol sulfate [Ventolin HFA] 90 mcg/actuation HFA aerosol inhaler 1 - 2 puff inhalation Q4H PRN PRN (Reason: Wheezing/SOB) Qty: 1 2RF No Action prednisone 20 MG tablet 40 mg PO DAILY Qty: 10 0RF Rx Instructions: With food albuterol sulfate 1 INHALER inhaler 1 - 2 puff INHALATION Q4H PRN PRN (Reason: Wheezing) Qty: 1 0RF penicillin V potassium 500 mg tablet 500 mg PO 4X/DAY Qty: 40 0RF Stand Alone Forms: ED Work / School Excuse Primary Care Provider: Care Physician,No Primary Referrals: Care Physician,No Primary [Primary Care Provider] - Activity Restrictions/Additional Instructions: Your CT scan today revealed no signs of airway compression or drainable dental abscess. Please stop the penicillin and begin taking the clindamycin for improved infection control. Continue to follow-up with your dentist for repeat evaluation and return to the ER should you have any further concerns Disposition Disposition: Home, Self Care Discharge Date/Time: 08/27/23 03:50
== END 2023-08-27 03:50 | disposition home or self-care (01) ==
PROVIDERS: Emergency Provider Emergency Medicine; Visit Provider Emergency Medicine
DX: K08.89 Other specified disorders of teeth and supporting structures (principal); F17.210 Nicotine dependence, cigarettes, uncomplicated; I10 Essential (primary) hypertension; J45.909 Unspecified asthma, uncomplicated
CPT/HCPCS: 70491; 80048; 83605; 85025; 96365; 96366; 96375; 99282; J7030; Q9967; A4216; J2405

== ENCOUNTER 2023-12-09 11:47 | Emergency (ER) | payer MEDICAID, SELFPAY ==
[2023-12-09 11:49] VITALS: BP 175/102; PULSE 100; RESP 18; TEMP 37; O2SAT 99; BMI 39.5
[2023-12-09 11:52] VITALS: BP 175/102; PULSE 102; RESP 14; TEMP 37; O2SAT 99
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
[2023-12-09] MEDS: Diphth,Pertuss(Acell),Tet Vac 0.5 ML Vial IM (12:27)
[2023-12-09] MEDS: Lidocaine 1% (20 ml mdv) 20 ML Vial 8 ML INFILT (12:27)
--- NOTE | 2023-12-09 12:28 | RAD_ITS ---
STUDY: X-RAY - RIGHT ANKLE REASON FOR EXAM: Male, 43 years old. Injury posterior ankle, achilles tendon TECHNIQUE: 3 view(s) of the ankle. COMPARISON: None. FINDINGS: There is spurring of the distal tibia and fibula with calcification at the syndesmosis. Normal medial and lateral malleoli. Normal tibiotalar articulation and ankle mortise. Normal visualized talus and calcaneus. The visualized subtalar, talonavicular, calcaneocuboid and tarsal articulations are normal. There is no demonstrated fracture. There is irregularity of the posterior soft tissues at the level of the musculotendinous junction of the Achilles. RAD/Ankle min 3 Views IMPRESSION: Irregularity of the posterior soft tissues. MRI and/or ultrasound recommended to evaluate for potential Achilles tendon injury. Electronically Signed: Richard Lim MD at 12:56 EDT ,
[2023-12-09] MEDS: Ketorolac 60 MG/2 ML Vial IM (13:09)
[2023-12-09] MEDS: Cephalexin 250 MG Capsule 500 MG PO (14:19)
== END 2023-12-09 14:25 | disposition home or self-care (01) ==
PROVIDERS: Emergency Provider Emergency Medicine; Visit Provider Emergency Medicine
DX: S91.011A Laceration without foreign body, right ankle, initial encounter (principal); F17.210 Nicotine dependence, cigarettes, uncomplicated; Z23 Encounter for immunization; W27.2XXA Contact with scissors, initial encounter; Y92.89 Other specified places as the place of occurrence of the external cause
CPT/HCPCS: 12002; 29515; 73610; 90471; 90715; 96372; 99285

== ENCOUNTER 2024-01-21 17:03 | Emergency (ER) | payer MEDICAID, SELFPAY ==
[2024-01-21 17:04] VITALS: BP 146/114; PULSE 95; RESP 18; TEMP 35.8; O2SAT 98; BMI 34.7
== END 2024-01-21 18:00 | disposition left against medical advice (07) ==
LOC: ED 18:06
DX: Z53.21 Procedure and treatment not carried out due to patient leaving prior to being seen by health care provider (principal)

== ENCOUNTER 2024-01-24 18:25 | Emergency (ER) | payer MEDICAID, SELFPAY ==
[2024-01-24 18:25] VITALS: BP 163/113; PULSE 93; RESP 17; TEMP 36.7; O2SAT 97; BMI 34.7
--- NOTE | 2024-01-24 19:07 | EX.ED.DYSGE1 ---
HPI History of Present Illness Chief Complaint: Asthma Informant: patient Onset/Context/Timing Onset: Days Context: Gradual Onset Narrative Narrative: Patient presents with shortness of breath and wheezing for the past couple days. He does have a history of asthma but does not currently have his inhaler. He does state that this time a year tends to flare his asthma. He has had a mild cough. He is noted to be hypertensive here 163/113. Patient most recently had losartan filled on November 14 of this year for 90-day supply. He states he was evicted from his home and was not able to take any of his medications with him. [facility] Medical History (Updated 01/24/24 @ 21:[address] Danii Wright MD) Asthma High blood pressure Dental abscess Home Medications ?Medication ?Instructions ?Recorded ?Last Taken ?Type albuterol sulfate 90 mcg/actuation 1 - 2 puff inhalation Q4H PRN PRN 01/24/24 Unknown History aerosol inhaler asthma amlodipine 10 mg tablet 10 mg PO DAILY 01/24/24 Unknown History losartan 100 mg tablet 100 mg PO DAILY 01/24/24 Unknown History losartan 100 mg tablet 100 mg PO DAILY #30 tabs 01/24/24 Unknown Rx Allergy/AdvReac Type Severity Reaction Status Date / Time pollen extracts (pollens) Allergy Shortness Verified 01/24/24 18:27 of breath Social History Smoking Status: Current every day smoker tobacco type: cigarettes ROS ROS ED Constitutional Constitutional ED: Denies chills or fever(s) Eyes Eyes: Denies change in vision ENT ENT ED: Denies rhinorrhea or sore throat Cardiovascular Cardiovascular: Denies chest pain Respiratory/Chest Respiratory/Chest: Reports cough and dyspnea Gastrointestinal Gastrointestinal: Denies abdominal pain, diarrhea or vomiting Genitourinary Genitourinary ED: Denies dysuria Neurologic Neurologic: Denies headache(s) EXAM Physical Exam Const Vital Signs: 01/24/24 18:25 01/24/24 19:12 01/24/24 19:29 Temperature 98.1 F Temperature Source Temporal Pulse Rate 93 Respiratory Rate 17 Respiratory Effort Normal Respiratory Depth Normal Respiratory Pattern Normal Blood Pressure 163/113 H 172/111 H Blood Pressure Mean 129 131 Pulse Ox 97 99 Oxygen Delivery Method Room Air Room Air Room Air 01/24/24 20:44 Temperature Temperature Source Pulse Rate 85 Respiratory Rate Respiratory Effort Respiratory Depth Respiratory Pattern Normal Blood Pressure Blood Pressure Mean Pulse Ox Oxygen Delivery Method Positive well nourished and well developed General Appearance ED: well developed HEENT Reports moist mucous membranes Eyes EOMs intact bilaterally Chest Wall inspection of chest normal and palpation of chest normal Resp normal respiratory effort Resp Narrative: Mild expiratory wheezes noted on the left. Cardio regular rate and regular rhythm GI non-tender Palpation: soft Extremity normal to inspection Neuro oriented x3 and no sensory deficits noted Motor Exam: strength 5/5 throughout Psych mental status grossly normal Skin no rashes or lesions noted MDM MDM MDM Narrative Medical decision making narrative: Patient was given a dose of his losartan here. He is given albuterol MDI for his wheezing along with a dose of prednisone. Chest x-ray obtained to evaluate for acute lung pathology, cardiac size, or mediastinal abnormality. Radiography Diagnostic Testing: Clinical Impression(s) from Imaging Studies Chest X-Ray 01/24/24 19:15 IMPRESSION: No radiographic evidence of acute cardiopulmonary disease. Electronically Signed: Varun Perea MD at 19:33 EDT , Treatment and Re-Evaluation :: 2 view chest x-ray per my interpretation feels no evidence of focal infiltrate. Radiology interpretation reviewed and agrees. On repeat exam lung sounds are clear to auscultation. He will have his albuterol MDI to take home with him. I will send a prescription for his blood pressure medicine to the pharmacy for him. Return instructions provided. Discharge Plan Triage Chief Complaint: Asthma ED Provider: Danii Wright Dx/Rx/DC Orders Clinical Impression: HTN (hypertension), Asthma exacerbation Instructions: ED Asthma, Acute (Adult), ED Hypertension, Established Prescriptions: New losartan 100 mg tablet 100 mg PO DAILY Qty: 30 0RF No Action albuterol sulfate 90 mcg/actuation HFA aerosol inhaler 1 - 2 puff INHALATION Q4H PRN PRN (Reason: asthma) Patient Comments: Pt. states he is out of it. but needs it. amlodipine 10 mg tablet 10 mg PO DAILY Patient Comments: Patient states he is out of it, but is supposed to take it. losartan 100 mg tablet 100 mg PO DAILY Patient Comments: Out of medication. Primary Care Provider: Care Physician,No Primary Referrals: Keiry Topete DO [Med Staff - Active Staff] - As Needed Care Physician,No Primary [Primary Care Provider] - Print Language: Icelandic Disposition Disposition: Home, Self Care
[2024-01-24 19:12] VITALS: O2SAT 96
--- NOTE | 2024-01-24 19:15 | RAD_ITS ---
INDICATION: sob EXAMINATION/TECHNIQUE: X-RAY - XR Chest 2 Views COMPARISON: None. FINDINGS: LINES/DEVICES: None. LUNGS: No consolidation, edema or effusion. No pneumothorax. MEDIASTINUM AND CARDIOVASCULAR STRUCTURES: Cardiac silhouette not enlarged. Central airways and mediastinal contour are unremarkable. BONES AND SOFT TISSUES: Unremarkable. RAD/Chest PA and Lateral IMPRESSION: No radiographic evidence of acute cardiopulmonary disease. Electronically Signed: Varun Perea MD at 19:33 EDT ,
[2024-01-24 19:29] VITALS: BP 172/111; O2SAT 99
[2024-01-24] MEDS: Losartan Potassium 100 MG Tablet PO (19:33)
[2024-01-24] MEDS: Albuterol Sulfate 8 gm Inhaler (60 puffs) 2 PUFF INHALATION (20:42)
[2024-01-24 20:44] VITALS: PULSE 85
[2024-01-24] MEDS: predniSONE 20 MG Tablet 60 MG PO (20:48)
[2024-01-24 21:14] VITALS: BP 168/114; PULSE 82; RESP 14; TEMP 36.6; O2SAT 99
== END 2024-01-24 21:35 | disposition home or self-care (01) ==
PROVIDERS: Emergency Provider Emergency Medicine; Visit Provider Emergency Medicine
DX: J45.901 Unspecified asthma with (acute) exacerbation (principal); I10 Essential (primary) hypertension; F17.210 Nicotine dependence, cigarettes, uncomplicated; Z79.51 Long term (current) use of inhaled steroids; Z79.899 Other long term (current) drug therapy
CPT/HCPCS: 71046; 94640; 99282